=== PATIENT | male | born 1950 | race Caucasian/White ===

== ENCOUNTER 2017-09-21 08:15 | Outpatient (RCR) | payer OTHER, SELFPAY ==
--- NOTE | 2017-09-08 13:57 | PT.OTN ---
Addendum entered and electronically signed by Lorena Johnson, PT 09/08/17 14:24: Transition note: On September 08, 2017 our therapy services consisting of Speech, Occupational, and Physical Therapy transitioned from the [employer] electronic documentation system to a new [employer] electronic documentation system.?? All documentation prior to September 08 can be found under [employer] saved data. From September 08 forward all medical record documentation will be in [employer]. Original Note: Physical Therapy Treatment Note PT-OP-A Visit Information Start: 09/08/17 10:28 Freq: Status: Active Protocol: Activity Type Activity Date Activity User E-Sign Co-Sign Detail Recorded Client Recorded Date Recorded By Document 09/08/17 09:15 EA [id number] 09/08/17 12:49 EA 09/08/17 09:15 Out-Patient Physical Therapy Visit Information [Visit Information] -Visit Type Treatment Note -Visit Start Time 08:15 -Visit Stop Time 09:08 -Total Visit Minutes 53 PT-OP-C Subjective Start: 09/08/17 10:28 Freq: Status: Active Protocol: Activity Type Activity Date Activity User E-Sign Co-Sign Detail Recorded Client Recorded Date Recorded By Document 09/08/17 12:15 EA [id number] 09/08/17 12:44 EA 09/08/17 12:15 OP-PT Subjective [Patient Comments] -Patient Comments Patient reports pain decreased after last session and pain mostly happen after waking up in the morning and slowly decrease after few mobilization. Patient also reports that he is planning to row a boat today and hoping no problem; he is aware with recommended stretching pre- caution. -Patient Reported Progress Improving PT-OP-Q Treatments Start: 09/08/17 10:28 Freq: Status: Active Protocol: Activity Type Activity Date Activity User E-Sign Co-Sign Detail Recorded Client Recorded Date Recorded By Document 09/08/17 12:15 EA [id number] 09/08/17 12:44 EA 09/08/17 12:15 Cardio Equipment [Recumbent Elliptical ([employer])] -Duration (Minutes) 6 -Resistance 3 -Other UE's does work than BLE's Gym Equipment [Cable Column (Body Solid)] Seated cable row, Pull down bilateral -Resistance 30-50 lbs -Reps/Time 12-15 reps x 2 sets Therapeutic Exercises [Prone Exercises] T-Ball prone DB mid back row -Side bilateral -Equipment Used DB, TB -Reps/Minutes 12-15 reps x 2 sets [Other Exercises] Quadruped thorcic rotation w/ stretch -Side bilateral -Reps/Minutes 10 reps x 2 sets Standing Latissimus, Ql, and TL side flexors stretch -Side bilateral -Reps/Minutes x 15-30 SH x 2 reps Child pose to SB to L/R -Side bilateral -Reps/Minutes 15 SH x 5 reps x 2sets Manual Therapy Treatment [Manual Techniques] Supine: HR active stretch to right Lats -Body Position Supine -Reps/Duration 5 reps x 2 sets -Comments Sub max contraction only. STM: to right paralumbars, low parathoracis, QL -Body Position Prone -Reps/Duration 12 PT-OP-R Modalities Start: 09/08/17 10:28 Freq: Status: Active Protocol: Activity Type Activity Date Activity User E-Sign Co-Sign Detail Recorded Client Recorded Date Recorded By Document 09/08/17 12:15 EA [id number] 09/08/17 12:44 EA 09/08/17 12:15 Electric Stimulation [Electric Stimulation] Interferential Current (IFC) -Contraction Type Normal -Target/Sweep Target -High/Low High -Patient Position Prone -Combined With Heat/Cold Hot Pack Hot Pack/Cold Pack [Treatment] Hot Pack -Patient Position Prone -Treatment Duration (minutes) 15 -Patient Tolerance Good -Comments pillow under abdominal Ultrasound Therapy [Treatment] Right Back -Treatment Duration (minutes) 8 -Patient Position Prone -Coupling Medium Ultrasound Gel -Mode Setting Continuous -Intensity Setting (w/cm2) 1.2 -Patient Tolerance Good [Comment] -Treatment Comment Right Paralumbars, QL , and lower Parathoracis PT-OP-T Assessment and Plan Start: 09/08/17 10:28 Freq: Status: Active Protocol: Activity Type Activity Date Activity User E-Sign Co-Sign Detail Recorded Client Recorded Date Recorded By Document 09/08/17 12:15 EA [id number] 09/08/17 12:44 EA 09/08/17 12:15 Physical Therapy Assessment [Rehab Potential] -Rehabilitation Potential Good [Impairments] -Impairments Soft Tissue Mobility [Assessment Summary] -Assessment Patient exhibits improved TL spine ROM and exrcises tolerance. Patient have decreased stiffness to right paralumbars and thoracis. Patient is progressing well at this time. Physical Therapy Plan [Next Visit Focus/Plan] -Next Visit Plan Continue w/ current plan with addition of rowing machine for cardio exercises. Current Diagnoses Pleurodynia (09/08/17)
--- NOTE | 2017-09-15 13:28 | PT.OTN ---
Current Diagnoses Pleurodynia (09/15/17) Physical Therapy Treatment Note PT-OP-A Visit Information Start: 09/08/17 10:28 Freq: Status: Active Protocol: Activity Type Activity Date Activity User E-Sign Co-Sign Detail Recorded Client Recorded Date Recorded By Document 09/15/17 10:53 GAYLE [id number] 09/15/17 10:53 EA 09/15/17 10:53 Out-Patient Physical Therapy Visit Information [Visit Information] -Visit Type Treatment Note -Total Visit Minutes 58 -Visit Number 5 PT-OP-C Subjective Start: 09/08/17 10:28 Freq: Status: Active Protocol: Activity Type Activity Date Activity User E-Sign Co-Sign Detail Recorded Client Recorded Date Recorded By Document 09/15/17 09:00 GAYLE [id number] 09/15/17 10:52 EA 09/15/17 09:00 OP-PT Subjective [Patient Comments] -Patient Comments Patient reports able to row the boat for more than an hour and pain did not increased; states that he is feeling much better at this time. -Patient Reported Progress Improving PT-OP-Q Treatments Start: 09/08/17 10:28 Freq: Status: Active Protocol: Activity Type Activity Date Activity User E-Sign Co-Sign Detail Recorded Client Recorded Date Recorded By Document 09/15/17 09:00 EA [id number] 09/15/17 10:52 EA 09/15/17 09:00 Cardio Equipment [Rowing Machine] -Duration (Minutes) 6 -Resistance 3 Therapeutic Exercises [Prone Exercises] 2 -Prone Exercise Name Elysia pose -Side bilateral -Reps/Minutes x 15 SH x 3 1 -Prone Exercise Name Prone back extension -Reps/Minutes x10 x 3 sets T-Ball prone DB mid back row -Side bilateral -Equipment Used DB, TB -Reps/Minutes 12-15 reps x 2 sets [Other Exercises] Quadruped thorcic rotation w/ stretch -Side bilateral -Reps/Minutes 10 reps x 2 sets Standing Latissimus, Ql, and TL side flexors stretch -Side bilateral -Reps/Minutes x 15-30 SH x 2 reps Manual Therapy Treatment [Soft Tissue Mobilization] 1 -Body Location R paralumbars -Mobilization Type Myofascial Release Rolling -Intensity/Depth Moderate -Body Position Prone [Manual Techniques] Supine: HR active stretch to right Lats -Body Position Supine -Reps/Duration 5 reps x 2 sets -Comments Sub max contraction only. STM: to right paralumbars, low parathoracis, QL -Body Position Prone -Reps/Duration 12 PT-OP-R Modalities Start: 09/08/17 10:28 Freq: Status: Active Protocol: Activity Type Activity Date Activity User E-Sign Co-Sign Detail Recorded Client Recorded Date Recorded By Document 09/15/17 09:00 GAYLE [id number] 09/15/17 10:52 EA 09/15/17 09:00 Electric Stimulation [Electric Stimulation] Interferential Current (IFC) -Contraction Type Normal -Target/Sweep Target -High/Low High -Patient Position Prone -Combined With Heat/Cold Hot Pack Hot Pack/Cold Pack [Treatment] Hot Pack -Patient Position Prone -Treatment Duration (minutes) 15 -Patient Tolerance Good -Comments pillow under abdominal Ultrasound Therapy [Treatment] Right Back -Treatment Duration (minutes) 8 -Patient Position Prone -Coupling Medium Ultrasound Gel -Mode Setting Continuous -Intensity Setting (w/cm2) 1.2 -Patient Tolerance Good PT-OP-T Assessment and Plan Start: 09/08/17 10:28 Freq: Status: Active Protocol: Activity Type Activity Date Activity User E-Sign Co-Sign Detail Recorded Client Recorded Date Recorded By Document 09/15/17 09:00 GAYLE [id number] 09/15/17 10:52 EA 09/15/17 09:00 Physical Therapy Assessment [Goals] One -Halfway Goal (LTG) Patient will perform rowing and other therpeutic activity without pain. -LTG Duration 1 wk [Progress Towards Goals] -Progress Towards Goals Progressing Toward Goals -Progress Comments Patient tolerated 6 minutes row w/ no increased of back/rightt rib symtoms. [Assessment Summary] -Assessment Patient is progress well towards goals. Physical Therapy Plan [Next Visit Focus/Plan] -Next Visit Plan Cont. with current program and discharge next visit fi goals met.
--- NOTE | 2017-09-21 16:32 | PT.OTN ---
Current Diagnoses Pleurodynia (09/21/17) Physical Therapy Treatment Note PT-OP-A Visit Information Start: 09/08/17 10:28 Freq: Status: Active Protocol: Document 09/21/17 09:20 EA (Rec: 09/21/17 16:24 EA [id number]) Out-Patient Physical Therapy Visit Information Visit Information Visit Type Treatment Note Total Visit Minutes 40 Visit Number 6 PT-OP-C Subjective Start: 09/08/17 10:28 Freq: Status: Active Protocol: Document 09/21/17 09:20 EA (Rec: 09/21/17 16:24 EA [id number]) OP-PT Subjective Patient Comments Patient Comments Patient reports did hiking for 2 hours without increased of back sysmptoms; reports no pain at rest and 1/10 with activity; overall he feels that he improved a lot. Patient agreeable to discharge today as he feels he will improve with HEP after todays treatment. Patient Questionnaires Oswestry Low Back Index Oswestry Score 9 Oswestry Impairment 1 to 19% Impaired (Score 1-19) PT-OP-Q Treatments Start: 09/08/17 10:28 Freq: Status: Active Protocol: Document 09/21/17 09:20 EA (Rec: 09/21/17 16:24 EA [id number]) Manual Therapy Treatment Soft Tissue Mobilization 1 Body Location R paralumbars Mobilization Type Myofascial Release Rolling Intensity/Depth Moderate Body Position Prone Self-Care/Home Management Treatment Education Patient Education Body Mechanics Home Exercise Program Pain Management Posture PT-OP-R Modalities Start: 09/08/17 10:28 Freq: Status: Active Protocol: Document 09/21/17 09:20 EA (Rec: 09/21/17 16:24 EA [id number]) Electric Stimulation Electric Stimulation Interferential Current (IFC) Contraction Type Normal Target/Sweep Target High/Low High Patient Position Prone Combined With Heat/Cold Hot Pack Hot Pack/Cold Pack Treatment Hot Pack Patient Position Prone Treatment Duration (minutes) 15 Patient Tolerance Good Comments pillow under abdominal PT-OP-T Assessment and Plan Start: 09/08/17 10:28 Freq: Status: Active Protocol: Document 09/21/17 09:20 EA (Rec: 09/21/17 16:24 EA [id number]) Physical Therapy Assessment Rehab Potential Rehabilitation Potential Excellent Goals One LTG Duration Goals reached Progress Towards Goals Progress Towards Goals Goals Met Assessment Summary Assessment Patient is discharge today upon reaching functional and treatment goals. Patient educated with HEP and exhibits good carryover. Physical Therapy Plan Next Visit Focus/Plan Next Visit Plan Patient is discharge today.
--- NOTE | 2017-09-21 16:33 | PT.OPDS ---
Current Diagnoses Pleurodynia (09/21/17) Provider Visit Care Team Role Provider Type Karuna Berg MD Attending Provider Physician Family Provider Primary Care Provider Specialty: Family Practice Address: [address] [place] [address], [facility] Email: Discharge Summary PT-OP-C Subjective Start: 09/08/17 10:28 Freq: Status: Active Protocol: Document 09/21/17 09:20 EA (Rec: 09/21/17 16:24 EA [id number]) OP-PT Subjective Patient Comments Patient Comments Patient reports did hiking for 2 hours without increased of back sysmptoms; reports no pain at rest and 1/10 with activity; overall he feels that he improved a lot. Patient agreeable to discharge today as he feels he will improve with HEP after todays treatment. Patient Questionnaires Oswestry Low Back Index Oswestry Score 9 Oswestry Impairment 1 to 19% Impaired (Score 1-19) PT-OP-T Assessment and Plan Start: 09/08/17 10:28 Freq: Status: Active Protocol: Document 09/21/17 09:20 EA (Rec: 09/21/17 16:24 EA [id number]) Physical Therapy Assessment Rehab Potential Rehabilitation Potential Excellent Goals One LTG Duration Goals reached Progress Towards Goals Progress Towards Goals Goals Met Assessment Summary Assessment Patient is discharge today upon reaching functional and treatment goals. Patient educated with HEP and exhibits good carryover. Physical Therapy Plan Next Visit Focus/Plan Next Visit Plan Patient is discharge today.
== END 2017-10-22 09:20 ==
LOC: PHYS 08:15
PROVIDERS: Family Provider Family Medicine; PCP Family Medicine; Visit Provider Family Medicine
DX: R07.81 Pleurodynia (principal)
CPT/HCPCS: 97010; 97014; 97035; 97110; 97140; 97535; G0283

== ENCOUNTER → 2018-03-10 10:52 | Outpatient (CLI) | payer OTHER, SELFPAY ==
--- NOTE | 2018-03-10 | DI.RAD.S_ITS ---
PROCEDURE: XR LUMBAR SPINE 2-3V INDICATIONS: LOW BACK PAIN TECHNIQUE: 3 views of the lumbar spine were acquired. COMPARISON: [facility], , L-SPINE 2-3 VIEWS, 02/04/2013, 13:56. FINDINGS: Bones: 5 qve-ene-cimwwyc vertebrae are present. Mild dextrocurvature. Multilevel grade one retrolisthesis. Multilevel disc degeneration, moderate to severe at the L1-L2 level. Moderate L4-L5 and L5-S1 facet joint arthropathy. No vertebral body compression fractures. No suspicious bony lesions. Soft tissues: Overlying bowel gas pattern is normal. No suspicious soft tissue calcifications. IMPRESSION: Multilevel degenerative change. Dictated by: Wilmer Agee [facility] Interpreted: Shahab Fortune MD on 03/10/2018 at 14:16 Approved by: Shahab Fortune M.D. on 03/10/2018 at 15:42
== END ==
PROVIDERS: PCP Family Medicine; Visit Provider Family Medicine
DX: M54.5 Low back pain (principal); M51.36 Other intervertebral disc degeneration, lumbar region; M43.16 Spondylolisthesis, lumbar region; M47.816 Spondylosis without myelopathy or radiculopathy, lumbar region; M47.817 Spondylosis without myelopathy or radiculopathy, lumbosacral region
CPT/HCPCS: 72100

== ENCOUNTER 2018-08-24 06:54 | Day surgery (SDC) | payer OTHER, SELFPAY ==
[2018-08-24 07:16] VITALS: BP 157/71; PULSE 54; RESP 15; TEMP 36.3; O2SAT 97
[2018-08-24 07:25] VITALS: BP 98/58; PULSE 41; RESP 12; TEMP 36.1; O2SAT 100
[2018-08-24 07:30] VITALS: BP 118/66; PULSE 47; RESP 16; O2SAT 100
[2018-08-24] MEDS: PROPARACAINE 0.5% OPHTH SOL 2 DROPS EYE-OP (07:45)
[2018-08-24] MEDS: CATARACT EYE COMPOUND (10 DROPS/SYRINGE) 3 DROPS EYE-OP (07:50)
--- NOTE | 2018-08-24 08:09 | PM.PREOP ---
Pre-operative Note Interval Note History & Physical reviewed/Exam performed by Physician: No Changes to H&P: No
--- NOTE | 2018-08-24 08:09 | PM.OP.1 ---
Operative Date/Time/Diagnoses Pre-op diagnosis: Nuclear cataract right eye Procedure & Clinicians Procedure: Cataract Surgery Same procedure as scheduled: Yes Surgeon: Baljit Scott Anesthesia Type: MAC +/- and Sedation Operative Notes Procedure in detail: Patient brought to the operating suite. Tetracaine drops placed in the right eye. Patient was prepped and draped in sterile manner. Wire lid speculum was placed in the eye. Betadine drops were placed on the eye. This was irrigated. Lidocaine jelly was placed on the eye. A paracentesis port was created with a side-port blade. 0.1 mL 1% preservative free lidocaine was injected into the anterior chamber. The anterior chamber was deepened with viscoelastic. 2.6 mm keratome was used to create a temporal clear corneal incision. Cystotome and Utrata forceps were used to create continuous tear capsulorrhexis. Balanced salt solution was used to hydro dissect the nucleus. The phacoemulsification handpiece was inserted and the nucleus was removed using the stop and chop technique. A tear was noticed in the anterior capsule. This did not extend and no vitreous was present in the anterior chamber. The irrigation aspiration handpiece was inserted and the remaining cortex was removed. Anterior chamber was deepened with viscoelastic. The incision was enlarged with the keratome An Puckett [id number] intraocular lens with a power of 21.5 was injected into the sulcus with optic capture. Irrigation aspiration handpiece was inserted and the remaining viscoelastic was removed. Miost was injected to constrict the pupil above the lens. Incision was hydrated with balanced salt solution and found to be leak free with pressure with Weck-Shelby sponges. 0.1 mL Vigamox injected anterior chamber. 0.3 mL Kenalog 10 mg was injected subconjunctivally. Lid speculum was removed. The patient left the operating room in excellent condition. Complications: none Condition: stable Disposition: same day surgery
[2018-08-24] MEDS: PHENYLEPHRINE/LIDOCAINE VIAL (OR) 0.2 ML EYE-OP (08:28)
[2018-08-24] MEDS: TRIAMCINOLONE 50 MG/5 ML VIAL INJ (08:28)
[2018-08-24] MEDS: MOXIFLOXACIN OPHTH DROPS 3 ML BOTTLE 2 DROPS INJ (08:28)
[2018-08-24] MEDS: BALANCED SALT IRRIG SOLN NO.2 500 ML, EPINEPHrine 1 MG IRR (08:29)
[2018-08-24] MEDS: CHONDROIDTIN/SOD HYALURONATE 1.05 ML SYRINGE INTRAOCULA (08:29)
[2018-08-24] MEDS: LIDOCAINE JELLY 2% 5 ML 1 APPLIC TOP (08:29)
[2018-08-24] MEDS: TETRACAINE 0.5% OPHTH DROPS 4 ML 2 DROPS EYE-OP (08:29)
[2018-08-24] MEDS: CARBACHOL 1.5 ML VIAL INJ (08:41)
[2018-08-24 08:51] VITALS: BP 134/73; PULSE 54; RESP 15; TEMP 36.3; O2SAT 96
--- NOTE | 2018-08-24 09:01 | SUR.PREOP ---
Pt dressed when ready to go and left unit when ready and left in stable condition.
--- NOTE | 2018-08-24 09:03 | SUR.PHASEII ---
Phase 2 charting may have been done in Phase one section.
== END 2018-08-24 09:02 ==
LOC: OR 06:55
PROVIDERS: Family Provider Family Medicine; PCP Family Medicine; Visit Provider Ophthalmology
DX: H25.11 Age-related nuclear cataract, right eye (principal); J45.909 Unspecified asthma, uncomplicated
CPT/HCPCS: J0171; J2250; J3010; J3301

== ENCOUNTER 2018-09-07 07:00 | Day surgery (SDC) | payer OTHER, SELFPAY ==
[2018-09-07] MEDS: PROPARACAINE 0.5% OPHTH SOL 2 DROPS EYE-OP (07:10)
[2018-09-07 07:16] VITALS: BP 136/76; PULSE 66; RESP 16; TEMP 36.6; O2SAT 99; BMI 22.5
[2018-09-07] MEDS: CATARACT EYE COMPOUND (10 DROPS/SYRINGE) 3 DROPS EYE-OP (07:37)
--- NOTE | 2018-09-07 08:14 | PM.PREOP ---
Pre-operative Note Interval Note History & Physical reviewed/Exam performed by Physician: No Changes to H&P: No
--- NOTE | 2018-09-07 08:14 | PM.OP.1 ---
Operative Date/Time/Diagnoses Pre-op diagnosis: Nuclear Cataract Left eye Post-op diagnosis: same Procedure & Clinicians Surgeon: Baljit Scott Anesthesia Type: MAC +/- and Sedation Operative Notes Procedure in detail: Patient brought to the operating suite. Tetracaine drops placed in the left eye. Patient was prepped and draped in sterile manner. Wire lid speculum was placed in the eye. Betadine drops were placed on the eye. This was irrigated. Lidocaine jelly was placed on the eye. A paracentesis port was created with a side-port blade. 0.1 mL 1% preservative free lidocaine was injected into the anterior chamber. The anterior chamber was deepened with viscoelastic. 2.6 mm keratome was used to create a temporal clear corneal incision. Cystotome and Utrata forceps were used to create continuous tear capsulorrhexis. Balanced salt solution was used to hydro dissect the nucleus. The phacoemulsification handpiece was inserted and the nucleus was removed using the stop and chop technique. The irrigation aspiration handpiece was inserted and the remaining cortex was removed. Anterior chamber was deepened with viscoelastic. An Puckett [id number] intraocular lens with a power of 22.0 was injected into the capsular bag. Irrigation aspiration handpiece was inserted and the remaining viscoelastic was removed. Incision was hydrated with balanced salt solution and found to be leak free with pressure with Weck-Shelby sponges. 0.1 mL Vigamox injected anterior chamber. 0.3 mL Kenalog 10 mg was injected subconjunctivally. Lid speculum was removed. The patient left the operating room in excellent condition. Complications: none Condition: stable Disposition: same day surgery
[2018-09-07] MEDS: PHENYLEPHRINE/LIDOCAINE VIAL (OR) 0.2 ML EYE-OP (08:32)
[2018-09-07] MEDS: MOXIFLOXACIN OPHTH DROPS 3 ML BOTTLE 2 DROPS INJ (08:32)
[2018-09-07] MEDS: LIDOCAINE JELLY 2% 5 ML 1 APPLIC TOP (08:33)
[2018-09-07] MEDS: TETRACAINE 0.5% OPHTH DROPS 4 ML 2 DROPS EYE-OP (08:33)
[2018-09-07] MEDS: TRIAMCINOLONE 50 MG/5 ML VIAL INJ (08:33)
[2018-09-07] MEDS: CHONDROIDTIN/SOD HYALURONATE 1.05 ML SYRINGE INTRAOCULA (08:33)
[2018-09-07] MEDS: BALANCED SALT IRRIG SOLN NO.2 500 ML, EPINEPHrine 1 MG IRR (08:34)
[2018-09-07 08:45] VITALS: BP 136/94; PULSE 60; RESP 16; TEMP 36.5; O2SAT 95
== END 2018-09-07 08:55 | disposition home or self-care (01) ==
LOC: OR 07:01
PROVIDERS: Family Provider Family Medicine; PCP Family Medicine; Visit Provider Ophthalmology
DX: H25.12 Age-related nuclear cataract, left eye (principal); J45.909 Unspecified asthma, uncomplicated
CPT/HCPCS: J0171; J2250; J3010; J3301

== ENCOUNTER → 2019-11-29 10:58 | Outpatient (CLI) | payer OTHER, SELFPAY ==
--- NOTE | 2019-11-29 | DI.RAD.S_ITS ---
PROCEDURE: XR CHEST 2V INDICATIONS: ASTHMA TECHNIQUE: 2 views of the chest were acquired. COMPARISON: [facility] , CT, CHEST WITH CONTRAST, 09/14/2007, 10:42. FINDINGS: Surgical changes and devices: None. Lungs and pleura: Parenchymal scarring or atelectasis noted left lung base. No pleural effusions or pneumothorax. Mediastinum: Mediastinal contours are normal. Heart size is normal. Bones and chest wall: No suspicious bony abnormalities. Soft tissues appear unremarkable. IMPRESSION: No acute cardiopulmonary disease process. Dictated by: Eliza Delgado MD, PhD on 11/29/2019 at 17:36 Approved by: Eliza Delgado MD, PhD on 11/29/2019 at 17:40
== END ==
PROVIDERS: Family Provider Family Medicine; PCP Family Medicine; Referring Provider Family Medicine; Visit Provider Family Medicine
DX: J45.909 Unspecified asthma, uncomplicated (principal)
CPT/HCPCS: 71046

== ENCOUNTER → 2021-04-19 08:11 | Outpatient (CLI) | payer OTHER, SELFPAY ==
[2021-04-19 09:21] LABS: Add Manual Diff / Slide Review NO; Basophils Absolute Auto 100 /uL (0-100); Basophils Percent Auto 0.9 % (0-2); Eosinophils Absolute Auto 400 /uL (0-450); Eosinophils Percent Auto 6.7 % (2-4); Hematocrit 46.4 % (41-53); Hemoglobin 15.8 g/dL (13.5-17.5); Lymphocytes Absolute Auto 1500 /uL (1100-4500); Lymphocytes Percent Auto 24.6 % (25-40); Mean Corpuscular HGB Conc 34.2 % (30-36); Mean Corpuscular Hemoglobin 31.2 PG (26-34); Mean Corpuscular Volume 91.4 fL (80-100); Monocytes Absolute Auto 700 /uL (0-900); Monocytes Percent Auto 11.5 % (3-14); Neutrophils Absolute Auto 3400 /uL (1500-7000); Neutrophils Percent Auto 56.3 % (50-75); Platelet Count 222 X10^3/uL (150-400); Red Blood Cell Count 5.07 X10^6/uL (4.5-5.9)
[2021-04-19 09:41] LABS: Alanine Aminotransferase 36 IU/L (<50); Albumin 4.1 g/dL (3.5-5.0); Albumin Globulin Ratio 1.6 (1.0-2.8); Alkaline Phosphatase 100 U/L (38-126); Aspartate Aminotransferase 29 IU/L (17-59); BUN Creatinine Ratio 17.8 (6-22); Bilirubin Total 0.7 mg/dL (0.2-1.3); Blood Urea Nitrogen 16 mg/dL (9-20); Calcium 9.7 mg/dL (8.4-10.2); Carbon Dioxide 26 mmol/L (22-32); Chloride 106 mmol/L (98-107); Cholesterol 142 mg/dL (140-199); Estimated Glomerular Filt Rate > 60.0 mL/min (>60); Globulin 2.5 g/dL (1.7-4.1); Glucose 101 mg/dL (80-110); HDL Cholesterol 36 mg/dL (40-60); HEMOLYSIS < 15 (0-50); LDL Cholesterol Calculated 73 mg/dL (<100); Potassium 4.7 mmol/L (3.4-5.1); Sodium 140 mmol/L (137-145); Total Protein 6.6 g/dL (6.3-8.2); Triglycerides 165 mg/dL (35-150)
[2021-04-19 10:02] LABS: Prostate Specific Antigen 0.882 ng/mL (0.10-4.00)
== END ==
PROVIDERS: Family Provider Family Medicine; PCP Family Medicine; Referring Provider Family Medicine; Visit Provider Family Medicine
DX: E78.5 Hyperlipidemia, unspecified (principal)
CPT/HCPCS: 36415; 80053; 80061; 84153; 85025

== ENCOUNTER 2021-07-30 03:46 | Emergency (ER) | payer OTHER, SELFPAY ==
[2021-07-30] VITALS (12 sets, daily range): BP systolic 165–221; BP diastolic 77–104; PULSE 50–73; RESP 12–18; TEMP 36; O2SAT 90–100; BMI 23.1
--- NOTE | 2021-07-30 03:47 | ED_ITS ---
HPI - Chest Pain General Chief Complaint: Chest Pain Stated Complaint: BACK AND CHEST PAIN Time Seen by Provider: 07/30/21 03:47 History of Present Illness HPI narrative: 71-year-old male nonsmoker and occasional drinker presents with his in the chief complaint of bilateral lower abdominal pain, flank pain and chest pain that woke him from sleep about an hour ago. He states that he has been in his normal state of health and went to bed feeling fine. He woke up with these symptoms. He denies any headache or blurred vision. He has no trouble speech or swallowing. He does have some difficulty in breathing that he states feels different than his typical asthma exacerbation. He denies any recent travel or injury. He denies any overuse of any particular muscle groups. He has got no fever or chills. 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 He denies any obvious provocation, palliation. He denies any exertional component. Related Data Home Medications Medication Instructions Recorded Confirmed albuterol sulfate 90 mcg/actuation 1 puff INH PRN PRN #0 11/24/16 09/07/18 aerosol inhaler (Proventil HFA) atorvastatin 20 mg tablet (Lipitor) 20 mg PO HS #0 11/24/16 09/07/18 beclomethasone dipropionate 80 1 puff INH BID #0 11/24/16 09/07/18 mcg/actuation aerosol inhaler (Qvar) Previous Rx's Medication Instructions Recorded hydrocodone 5 mg-acetaminophen 325 1 tab PO Q4-6H PRN #10 tab 07/30/21 mg tablet ondansetron 4 mg disintegrating 4 mg PO TID-QID PRN #10 tab 07/30/21 tablet Allergies Allergy/AdvReac Type Severity Reaction Status Date / Time epinephrine [EPINEPHRINE] Allergy Unknown shock Verified 08/24/18 07:57 Review of Systems Review of Systems Narrative: GENERAL: Denies chills, fatigue, malaise, fever, sweats. HEENT: Denies sinus pain, ear pain, sore throat, difficulty swallowing, dizziness. RESPIRATORY: See HPI CARDIOVASCULAR: See HPI GASTROINTESTINAL: See HPI : Denies dysuria, frequency, incontinence, hematuria, urinary retention. MUSCULOSKELETAL: denies weakness, joint pain, or bony pain SKIN: Denies rash, skin lesions, or other NEUROLOGIC: Denies weakness, headache, numbness, change in speech, confusion, seizures, incoordination. PSYCHIATRIC: No concerning psychosocial issues. 12 point review of systems is negative except for those stated above Patient History Social History household members: spouse Smoking Status: Never smoker Exam Narrative Exam Narrative: GENERAL: [71 year old patient appears stated age. Well-developed patient, in mild distress. HEAD: Atraumatic. Normocephalic. EYES: Pupils equal round and reactive. Extraocular motions intact. No scleral icterus. No injection or drainage. ENT: Nose without bleeding, purulent drainage. Throat without erythema, tonsillar hypertrophy or exudate. Airway patent. NECK: Trachea midline. Non tender CARDIOVASCULAR: Regular rate and rhythm without murmurs, gallops, or rubs. RESPIRATORY: Clear to auscultation. Breath sounds equal bilaterally. No wheezes, rales, or rhonchi. GASTROINTESTINAL: Abdomen soft, mild generalized abdominal tenderness, nondistended. No pulsatile mass, bowel sounds present EXTREMITIES: No edema or joint tenderness. BACK: Nontender without deformity or crepitance. No flank tenderness. NEURO: AOx3. SKIN: No rash or erythema of visible areas Initial Vital Signs Initial Vital Signs: Vital Signs Temperature 96.8 F L 07/30/21 03:53 Pulse Rate 55 L 07/30/21 03:53 Respiratory Rate 18 07/30/21 03:53 Blood Pressure 221/104 H 07/30/21 03:53 Pulse Oximetry 98 07/30/21 03:53 Course Orders Ordered: Discontinued Medications Aspirin (Aspirin 81 Mg Chew Tab) 324 mg PO NOW ONE Stop: 07/30/21 03:49 Last Admin: 07/30/21 04:05 Dose: 324 mg Documented by: TSERING Sodium Chloride (Normal Saline 0.9%) 1,000 mls @ 150 mls/hr IV CONT JOSHUA Last Infusion: 07/30/21 15:02 Dose: 0 mls/hr Documented by: Admin: 07/30/21 04:05 Dose: 150 mls/hr Documented by: TSERING Consultations Consultation #1: Discussed with on-call surgery given mixed picture regarding findings on CT and ultrasound. Given lack of lab abnormalities, no significant findings on ultrasound, tolerance of pain and orals patient is appropriate for discharge and follow-up Vital Signs Vital signs: Vital Signs - 8 hr 07/30/21 03:53 07/30/21 04:01 Temperature 96.8 F L Pulse Rate 55 L 51 L Respiratory Rate 18 15 Blood Pressure 221/104 H 201/94 H Pulse Oximetry 98 100 MDM - Chest Pain Lab Data Result diagrams: 07/30/21 04:02 07/30/21 04:02 Labs: Lab Results 07/30/21 07/30/21 07/30/21 Range/Units 04:02 04:02 04:02 WBC 7.1 (4.5-11.0) X10^3/uL RBC 5.12 (4.5-5.9) X10^6/uL Hgb 15.8 (13.5-17.5) g/dL Hct 46.1 (41-53) % MCV 90.0 (80-100) fL MCH 30.8 (26-34) PG MCHC 34.2 (30-36) % RDW 13.1 (11.6-14.8) % Plt Count 211 (150-400) X10^3/uL Neut % (Auto) 52.8 (50-75) % Lymph % (Auto) 24.8 L (25-40) % [place] % (Auto) 11.4 (3-14) % Eos % (Auto) 9.8 H (2-4) % Baso % (Auto) 1.2 (0-2) % Neut # (Auto) 3700 (2585-3605) /uL Lymph # (Auto) 1800 (5099-3519) /uL [place] # (Auto) 800 (0-900) /uL Eos # (Auto) 700 H (0-450) /uL Baso # (Auto) 100 (0-100) /uL D-Dimer 202 (<230) ng/mL Sodium 137 (137-145) mmol/L Potassium 3.9 (3.4-5.1) mmol/L Chloride 105 (98-107) mmol/L Carbon Dioxide 28 (22-32) mmol/L BUN 19 (9-20) mg/dL Creatinine 0.89 (0.66-1.25) mg/dL Estimated GFR > 60.0 (>60) mL/min BUN/Creatinine Ratio 21.3 (6-22) Glucose 133 H (80-110) mg/dL Calcium 9.8 (8.4-10.2) mg/dL Total Bilirubin 0.6 (0.2-1.3) mg/dL AST 38 (17-59) IU/L ALT 40 (<50) IU/L Alkaline Phosphatase 86 (38-126) U/L Total Creatine Kinase 89 (55-170) U/L CK-MB (CK-2) TNP CK-MB (CK-2) Rel Index TNP Troponin I < 0.012 (0.01-0.034) ng/mL Total Protein 7.3 (6.3-8.2) g/dL Albumin 4.4 (3.5-5.0) g/dL Globulin 2.9 (1.7-4.1) g/dL Albumin/Globulin Ratio 1.5 (1.0-2.8) Lipase 122 (23-300) U/L Blood Type Antibody Screen 07/30/21 Range/Units 05:14 WBC (4.5-11.0) X10^3/uL RBC (4.5-5.9) X10^6/uL Hgb (13.5-17.5) g/dL Hct (41-53) % MCV (80-100) fL MCH (26-34) PG MCHC (30-36) % RDW (11.6-14.8) % Plt Count (150-400) X10^3/uL Neut % (Auto) (50-75) % Lymph % (Auto) (25-40) % [place] % (Auto) (3-14) % Eos % (Auto) (2-4) % Baso % (Auto) (0-2) % Neut # (Auto) (1188-1954) /uL Lymph # (Auto) (6378-5400) /uL [place] # (Auto) (0-900) /uL Eos # (Auto) (0-450) /uL Baso # (Auto) (0-100) /uL D-Dimer (<230) ng/mL Sodium (137-145) mmol/L Potassium (3.4-5.1) mmol/L Chloride (98-107) mmol/L Carbon Dioxide (22-32) mmol/L BUN (9-20) mg/dL Creatinine (0.66-1.25) mg/dL Estimated GFR (>60) mL/min BUN/Creatinine Ratio (6-22) Glucose (80-110) mg/dL Calcium (8.4-10.2) mg/dL Total Bilirubin (0.2-1.3) mg/dL AST (17-59) IU/L ALT (<50) IU/L Alkaline Phosphatase (38-126) U/L Total Creatine Kinase (55-170) U/L CK-MB (CK-2) CK-MB (CK-2) Rel Index Troponin I (0.01-0.034) ng/mL Total Protein (6.3-8.2) g/dL Albumin (3.5-5.0) g/dL Globulin (1.7-4.1) g/dL Albumin/Globulin Ratio (1.0-2.8) Lipase (23-300) U/L Blood Type O Positive Antibody Screen Negative Imaging Data CT scan - chest: Radiologist's Impression: Chart Viewer Diagnostics Subcategory All Activity ??:?? All Time ??:?? All Subcategories Filter Laboratory Imaging Microbiology Pathology Blood Bank Tests Cardiovascular Other Specialty DATE TYPE STATUS REF RANGE/AUTHOR Hx Today 05:51 Abdomen Ultrasound Signed Eliza Delgado Today 04:42 Chest/Abdomen/Pelvis CTA Signed Kesha Denson Today 03:48 Chest X-Ray Signed Eliza Delgado 11/29/19 00:00 Chest X-Ray Signed Eliza Delgado 03/10/18 00:00 Lumbar Spine X-Ray Signed Shahab Fortune Gerald R ED 71, M?1950 MRN#? [id number] DEP ER,?Main ED??? 187.96cm 81.647kg BMI: 23.1kg/m? Chest Pain Acc#? [id number] Resus Status Not Ordered No Hx Avail Special Indicators No Data to Display Home Meds Not Confirmed Prescription Monitoring Program Total 30 MME/Day Pending Discharge MEDICATIONS (INSTRUCTIONS) LAST TAKEN Active ??albuterol sulfate [Proventil HFA] ??1 puffINHPRNPRN#0 ??atorvastatin [Lipitor] ??20 mgPOHS#0 hydrocodone-acetaminophen 1 tabPOQ4-6HPRN#10 tab 30 MME/Day ondansetron 4 mgPOTID-QIDPRN#10 tab ??Qvar ??1 puffINHBID#0 *Product no longer available Allergies epinephrine (EPINEPHRINE) shock Problems ? ONSET Biliary colic Vital Signs Today 07:00 BP 202/84?H Pulse 58?L Resp 13? O2 Sat 98? Diagnostics Reports Toro Floyd??71??M??1950 ? Allergy/Adv: epinephrine Close Abdomen Ultrasound (Signed) Eliza Delgado - 07/30/21 Chest/Abdomen/Pelvis CTA (Signed) Kesha Denson - 07/30/21 Chest X-Ray (Signed) Eliza Delgado - 07/30/21 Chest X-Ray (Signed) Eliza Delgado - 11/29/19 Lumbar Spine X-Ray (Signed) Shahab Fortune - 03/10/18 Launch?[place] [address] CT Scan Report Signed Patient: Toro Floyd MR#: [id number] : 1950 Acct:[id number] Age/Sex: 71 / M Date of Service: 07/30/21 Loc: ED Accession Number: [id number] ?? Procedure: CT angio chest abdomen pelvis Ordering Provider: Williams Mauricio D.O. PROCEDURE:? CT ANGIO CHEST ABDOMEN PELVIS ? INDICATIONS:? sudden chest back, abdomen pain ? TECHNIQUE:? Precontrast 5 mm thick sections acquired from the lung apices to the iliac crests.? After the administration of intravenous contrast, 2.5 mm thick sections again acquired from the lung apices to the iliac crests.? Maximum intensity projection (MIP) oblique sagittal and coronal reformats were then acquired.? For radiation dose reduction, the following was used:? automated exposure control.? ? COMPARISON:? None. ? FINDINGS:? Image quality:? Excellent.? ? AORTA:? Mild diffuse calcific plaque causes mild diffuse stenosis within the thoracoabdominal aorta. ? CHEST:? Lungs and pleura:? No acute airspace opacities mild diffuse basilar predominant interstitial pulmonary opacity..? No pleural effusions or pneumothorax.? Central and peripheral airways are patent and normal in caliber.? ? Mediastinum:? Heart size is normal.? Mild calcification of the coronary va sculature.? No pericardial effusion.? No mediastinal or hilar adenopathy by size criteria.? Central pulmonary arteries are normal in size.? Esophagus is normal in caliber.? Large hiatal hernia.? ? Bones and chest wall:? No axillary adenopathy by size criteria.? Thyroid gland is within normal limits .? No suspicious bony lesions.? No vertebral body compression fractures.? ? ? ABDOMEN:? Vasculature:? Celiac trunk and mesenteric arteries are patent.? Renal arteries are also patent.? ? Solid organs:? Liver is normal in size and enhancement.? Gallbladder demonstrates a few small layering high density foci.? No evidence of gallbladder wall thickening.? Mild pericholecystic fat stranding.? Biliary system is non dilated.? Pancreas enhances normally.? Spleen is normal in size and enhancement.? No adrenal nodules.? Both kidneys are normal in size and enhancement, without hydronephrosis.? There are 2 nonobstructing calculi within the right interpolar kidney measuring 3 mm.? Bilateral renal cysts, largest of which is an exophytic cyst protruding inferiorly from the inferior pole right kidney measuring 70 mm diameter. ? Peritoneum and bowel:? No free fluid or air.? Bowel loops are normal in caliber and wall thickness.? Normal appendix. ? Nodes and vessels:? No retroperitoneal or mesenteric adenopathy by size criteria.? Inferior vena cava is normal in morphology.? ? Miscellaneous:? No ventral hernias.? ? ? PELVIS:? Genitourinary:? There is a left sided urinary bladder diverticulum measuring 14 mm diameter.? Bladder wall thickness is otherwise normal.? ? Miscellaneous:? No inguinal hernias or adenopathy.? No ventral hernias.? ? Bones:? No suspicious bony lesions.? No vertebral body compression fractures.? ? ? IMPRESSION:? 1. No acute process involving the thoracoabdominal aorta. 2. Cholelithiasis.? Mild pericholecystic fat stranding.? Findings may indicate mild/early cholecystitis.? This could be further assessed with ultrasound, if clinically indicated.? ? 3. Normal appendix. 4. Hiatal hernia. 5. Mild interstitial lung disease. 6. Urinary bladder diverticulum. 7. Concordant with preliminary interpretation. ? Dictated by: Kesha Denson M.D. on 07/30/2021 at 8:28 ? ? Approved by: Kesha Denson M.D. on 07/30/2021 at 8:48 ? US - abdomen: Radiologist's Impression: Chart Viewer Diagnostics Subcategory All Activity ??:?? All Time ??:?? All Subcategories Filter Laboratory Imaging Microbiology Pathology Blood Bank Tests Cardiovascular Other Specialty DATE TYPE STATUS REF RANGE/AUTHOR Hx Today 05:51 Abdomen Ultrasound Signed Eliza Delgado Today 04:42 Chest/Abdomen/Pelvis CTA Signed Kesha Denson Today 03:48 Chest X-Ray Signed Eliza Delgado 11/29/19 00:00 Chest X-Ray Signed Eliza Delgado 03/10/18 00:00 Lumbar Spine X-Ray Signed Shahab Fortune Gerald R ED 71, M?1950 MRN#? [id number] DEP ER,?Main ED??? 187.96cm 81.647kg BMI: 23.1kg/m? Chest Pain Acc#? [id number] Resus Status Not Ordered No Hx Avail Special Indicators No Data to Display Home Meds Not Confirmed Prescription Monitoring Program Total 30 MME/Day Pending Discharge MEDICATIONS (INSTRUCTIONS) LAST TAKEN Active ??albuterol sulfate [Proventil HFA] ??1 puffINHPRNPRN#0 ??atorvastatin [Lipitor] ??20 mgPOHS#0 hydrocodone-acetaminophen 1 tabPOQ4-6HPRN#10 tab 30 MME/Day ondansetron 4 mgPOTID-QIDPRN#10 tab ??Qvar ??1 puffINHBID#0 *Product no longer available Allergies epinephrine (EPINEPHRINE) shock Problems ? ONSET Biliary colic Vital Signs Today 07:00 BP 202/84?H Pulse 58?L Resp 13? O2 Sat 98? Diagnostics Reports Toro Floyd??71??M??1950 ? Allergy/Adv: epinephrine Close Abdomen Ultrasound (Signed) Eliza Delgado - 07/30/21 Chest/Abdomen/Pelvis CTA (Signed) Kesha Denson - 07/30/21 Chest X-Ray (Signed) Eliza Delgado - 07/30/21 Chest X-Ray (Signed) Eliza Delgado - 11/29/19 Lumbar Spine X-Ray (Signed) Shahab Fortune - 03/10/18 Launch?[address] [address] Ultrasound Report Signed Patient: Toro Floyd MR#: [id number] : 1950 Acct:[id number] Age/Sex: 71 / M Date of Service: 07/30/21 Loc: ED Accession Number: [id number] ?? Procedure: US abdomen limited Ordering Provider: Williams Mauricio D.O. PROCEDURE: US ABDOMEN LIMITED ? INDICATIONS:? ABNORMAL GALLBLADDER ON CT ? TECHNIQUE:? Real-time focused scanning was performed of the abdomen, with image documentati on.? ? COMPARISON:? None. ? FINDINGS:? ? Liver is normal in size.? Liver is diffusely echogenic. ? Two gallstones are identified.? Gallstones are fixed in the gallbladder neck.? No gallbladder wall thickening with gallbladder wall measuring 1.1 millimeters.? No pericholecystic fluid.? No sonographic Richardson sign. ? Biliary tree is nondilated.? Common bile duct measures 1.5 millimeters. ? IMPRESSION:? ? Cholelithiasis without sonographic evidence of cholecystitis.? If there is continued clinical concern for cholecystitis, a nuclear medicine HIDA scan should be considered for further evaluation. ? Echogenic liver. Finding typically represents fatty infiltration; however, finding is nonspecific and correlation with clinical and laboratory findings is recommended to exclude other etiologies including hepatic cirrhosis. ? ? ? Dictated by: Eliza Delgado MD, PhD on 07/30/2021 at 8:27 ? ? Approved by: Eliza Delgado MD, PhD on 07/30/2021 at 8:29 ? ECG Data Interpretation: EKG is normal sinus rhythm rate [57 ] and free of any signs of ischemia or ectopy. No ST segmental elevation or depression. No T wave inversions MDM Narrative Medical decision making narrative: Patient with relatively sudden onset back, upper abdomen and possible chest pain with improvement over the course of the visit. Imaging would suggest possible early gallbladder. No indications of surgical emergency. Labs are reassuring, pain well controlled and patient tolerating orals. Return precautions discussed and questions answered to his apparent satisfaction Discharge Plan Departure Patient Disposition: Home Clinical Impression: Biliary colic Instructions: Acute Abdominal Pain Activity Restrictions/Additional Instructions: *You have been diagnosed with [Right upper quadrant pain, likely due to gallbladder disease. As we discussed there is no new occasion for an emergent surgical intervention at this time ] *What to do: *Please continue to take your regular medications as directed. [x ] New medication prescriptions sent to your pharmacy: [[facility] ] [ ] New medication written as a paper prescription [ ] No new medications given *Please follow up with your primary care provider in 2-3 days, call for an appointment. Let them know you were seen in the Emergency Department and that we ask that you be seen in follow up. We will electronically transmit a record of today's note if your PCP is in our system *Please consider a clear liquid diet for the next 24-48 hours and then avoid fatty foods as they may trigger your gallbladder disease *If you do not have a primary care provider please contact the [facility] Resource line at [phone]. They will ask some questions about your medical history and help get you set up with a doctor in the community. *Return to Emergency Department if you should have any new, worsening or concerning symptoms, such as [fever greater than 101 F, shaking chills, worsening pain, persistent vomiting or other bothersome symptoms] Prescriptions: New hydrocodone-acetaminophen 5-325 mg tablet 1 tab PO Q4-6H PRN (Reason: pain) Qty: 10 0RF ondansetron 4 mg tablet,disintegrating 4 mg PO TID-QID PRN (Reason: nausea and vomiting) Qty: 10 0RF No Action atorvastatin [Lipitor] 20 MG tablet 20 mg PO HS Qty: 0 0RF Qvar 80 MCG/PUFF aerosol 1 puff INH BID Qty: 0 0RF albuterol sulfate [Proventil HFA] 90 MCG/PUFF HFA aerosol inhaler 1 puff INH PRN PRN (Reason: Cough) Qty: 0 0RF Referrals: Aleena Pedroza MD [Physician] - Karuna Berg MD [Primary Care Provider] -
--- NOTE | 2021-07-30 03:48 | DI.RAD.S_ITS ---
PROCEDURE: XR CHEST 1V INDICATIONS: Shortness of breath, Chest pain, Back Pain TECHNIQUE: One view of the chest was acquired. COMPARISON: None. FINDINGS: Surgical changes and devices: None. Lungs and pleura: Lungs are clear. No pleural effusions or pneumothorax. Mediastinum: Mediastinal contours appear normal. Heart size is normal. Bones and chest wall: Chronic right 3rd rib fracture. No suspicious bony lesions. Overlying soft tissues appear unremarkable. IMPRESSION: No acute cardiopulmonary disease process. Dictated by: Eliza Delgado MD, PhD on 07/30/2021 at 8:23 Approved by: Eliza Delgado MD, PhD on 07/30/2021 at 8:24
[2021-07-30] MEDS: SODIUM CHLORIDE 0.9% 1,000 ML 150 ML IV (04:05)
[2021-07-30] MEDS: ASPIRIN 81 MG CHEW TAB 324 MG PO (04:05)
[2021-07-30 04:30] LABS: Add Manual Diff / Slide Review NO; Basophils Absolute Auto 100 /uL (0-100); Basophils Percent Auto 1.2 % (0-2); Eosinophils Absolute Auto 700 /uL (0-450); Eosinophils Percent Auto 9.8 % (2-4); Hematocrit 46.1 % (41-53); Hemoglobin 15.8 g/dL (13.5-17.5); Lymphocytes Absolute Auto 1800 /uL (1100-4500); Lymphocytes Percent Auto 24.8 % (25-40); Mean Corpuscular HGB Conc 34.2 % (30-36); Mean Corpuscular Hemoglobin 30.8 PG (26-34); Monocytes Absolute Auto 800 /uL (0-900); Monocytes Percent Auto 11.4 % (3-14); Neutrophils Absolute Auto 3700 /uL (1500-7000); Neutrophils Percent Auto 52.8 % (50-75); Platelet Count 211 X10^3/uL (150-400); Red Blood Cell Count 5.12 X10^6/uL (4.5-5.9); Red Cell Distribution Width 13.1 % (11.6-14.8); White Blood Cell Count 7.1 X10^3/uL (4.5-11.0)
[2021-07-30 04:42] LABS: D Dimer 202 ng/mL (<230)
--- NOTE | 2021-07-30 04:42 | DI.CT.S_ITS ---
PROCEDURE: CT ANGIO CHEST ABDOMEN PELVIS INDICATIONS: sudden chest back, abdomen pain TECHNIQUE: Precontrast 5 mm thick sections acquired from the lung apices to the iliac crests. After the administration of intravenous contrast, 2.5 mm thick sections again acquired from the lung apices to the iliac crests. Maximum intensity projection (MIP) oblique sagittal and coronal reformats were then acquired. For radiation dose reduction, the following was used: automated exposure control. COMPARISON: None. FINDINGS: Image quality: Excellent. AORTA: Mild diffuse calcific plaque causes mild diffuse stenosis within the thoracoabdominal aorta. CHEST: Lungs and pleura: No acute airspace opacities mild diffuse basilar predominant interstitial pulmonary opacity.. No pleural effusions or pneumothorax. Central and peripheral airways are patent and normal in caliber. Mediastinum: Heart size is normal. Mild calcification of the coronary vasculature. No pericardial effusion. No mediastinal or hilar adenopathy by size criteria. Central pulmonary arteries are normal in size. Esophagus is normal in caliber. Large hiatal hernia. Bones and chest wall: No axillary adenopathy by size criteria. Thyroid gland is within normal limits . No suspicious bony lesions. No vertebral body compression fractures. ABDOMEN: Vasculature: Celiac trunk and mesenteric arteries are patent. Renal arteries are also patent. Solid organs: Liver is normal in size and enhancement. Gallbladder demonstrates a few small layering high density foci. No evidence of gallbladder wall thickening. Mild pericholecystic fat stranding. Biliary system is non dilated. Pancreas enhances normally. Spleen is normal in size and enhancement. No adrenal nodules. Both kidneys are normal in size and enhancement, without hydronephrosis. There are 2 nonobstructing calculi within the right interpolar kidney measuring 3 mm. Bilateral renal cysts, largest of which is an exophytic cyst protruding inferiorly from the inferior pole right kidney measuring 70 mm diameter. Peritoneum and bowel: No free fluid or air. Bowel loops are normal in caliber and wall thickness. Normal appendix. Nodes and vessels: No retroperitoneal or mesenteric adenopathy by size criteria. Inferior vena cava is normal in morphology. Miscellaneous: No ventral hernias. PELVIS: Genitourinary: There is a left sided urinary bladder diverticulum measuring 14 mm diameter. Bladder wall thickness is otherwise normal. Miscellaneous: No inguinal hernias or adenopathy. No ventral hernias. Bones: No suspicious bony lesions. No vertebral body compression fractures. IMPRESSION: 1. No acute process involving the thoracoabdominal aorta. 2. Cholelithiasis. Mild pericholecystic fat stranding. Findings may indicate mild/early cholecystitis. This could be further assessed with ultrasound, if clinically indicated. 3. Normal appendix. 4. Hiatal hernia. 5. Mild interstitial lung disease. 6. Urinary bladder diverticulum. 7. Concordant with preliminary interpretation. Dictated by: Kesha Denson M.D. on 07/30/2021 at 8:28 Approved by: Kesha Denson M.D. on 07/30/2021 at 8:48
[2021-07-30 04:45] LABS: Alanine Aminotransferase 40 IU/L (<50); Albumin 4.4 g/dL (3.5-5.0); Albumin Globulin Ratio 1.5 (1.0-2.8); Alkaline Phosphatase 86 U/L (38-126); Aspartate Aminotransferase 38 IU/L (17-59); BUN Creatinine Ratio 21.3 (6-22); Bilirubin Total 0.6 mg/dL (0.2-1.3); Blood Urea Nitrogen 19 mg/dL (9-20); Calcium 9.8 mg/dL (8.4-10.2); Carbon Dioxide 28 mmol/L (22-32); Chloride 105 mmol/L (98-107); Creatine Kinase 89 U/L (55-170); Estimated Glomerular Filt Rate > 60.0 mL/min (>60); Globulin 2.9 g/dL (1.7-4.1); Glucose 133 mg/dL (80-110); HEMOLYSIS 17 (0-50); Lipase 122 U/L (23-300); Potassium 3.9 mmol/L (3.4-5.1); Sodium 137 mmol/L (137-145); Total Protein 7.3 g/dL (6.3-8.2)
[2021-07-30 04:56] LABS: Troponin I < 0.012 ng/mL (0.01-0.034)
--- NOTE | 2021-07-30 05:51 | DI.US.S_ITS ---
PROCEDURE: US ABDOMEN LIMITED INDICATIONS: ABNORMAL GALLBLADDER ON CT TECHNIQUE: Real-time focused scanning was performed of the abdomen, with image documentation. COMPARISON: None. FINDINGS: Liver is normal in size. Liver is diffusely echogenic. Two gallstones are identified. Gallstones are fixed in the gallbladder neck. No gallbladder wall thickening with gallbladder wall measuring 1.1 millimeters. No pericholecystic fluid. No sonographic Richardson sign. Biliary tree is nondilated. Common bile duct measures 1.5 millimeters. IMPRESSION: Cholelithiasis without sonographic evidence of cholecystitis. If there is continued clinical concern for cholecystitis, a nuclear medicine HIDA scan should be considered for further evaluation. Echogenic liver. Finding typically represents fatty infiltration; however, finding is nonspecific and correlation with clinical and laboratory findings is recommended to exclude other etiologies including hepatic cirrhosis. Dictated by: Eliza Delgado MD, PhD on 07/30/2021 at 8:27 Approved by: Eliza Delgado MD, PhD on 07/30/2021 at 8:29
== END 2021-07-30 07:50 | disposition home or self-care (01) ==
PROVIDERS: Emergency Provider Emergency Medicine; Family Provider Family Medicine; PCP Family Medicine
DX: K80.50 Calculus of bile duct without cholangitis or cholecystitis without obstruction (principal)
CPT/HCPCS: 36415; 71045; 71275; 74174; 76705; 80053; 82550; 83690; 84484; 85025; 85379; 86850; 86900; 86901; 93005; 96360; 96361; 99284; Q9967

== ENCOUNTER → 2021-08-05 09:28 | Outpatient (CLI) | payer OTHER, SELFPAY ==
[2021-08-05 13:10] LABS: COVID19 -Nasal RAPID Negative (Negative)
== END ==
PROVIDERS: Family Provider Family Medicine; PCP Family Medicine; Visit Provider Surgery
DX: Z01.812 Encounter for preprocedural laboratory examination (principal); Z20.822 Contact with and (suspected) exposure to COVID-19
CPT/HCPCS: 87635; C9803

== ENCOUNTER 2021-08-06 13:38 | Day surgery (SDC) | payer OTHER, SELFPAY ==
[2021-08-05 09:02] VITALS: BMI 23.1
--- NOTE | 2021-08-06 | PATH_ITS ---
[facility] Accession Number: [id number] . 01 Material submitted: . gallbladder - GALLBLADDER . 02 Diagnosis: Gallbladder, Cholecystectomy: Acute and chronic cholecystitis and cholelithiasis. Small attached, capusular portion of liver with no significant histomorphologic abnormality. MRV 08/09/2021 1704 Local . 02 Electronically signed: . Catherine Pepper MD, Pathologist NPI- [id number] . 01 Gross description: . Received in formalin, labeled with the patient's name and designed 1. Gallbladder, is a 7.0 x 3.0 x 2.5 cm focally disrupted and collapsed gallbladder. The cystic duct margin is inked black. The serosa is trujillo-diaz and focally disrupted. There is an attached 1.6 x 1.4 cm portion of roughened cauterized tissue in the hepatic bed consistent with possible residual liver tissue (margin inked green). The wall is 0.2 to 0.3 cm thick. The mucosa is pale green, velvety and bile stained with no mucosal lesions identified. The lumen contains a 0.9 x 0.4 x 0.4 cm aggregate of multiple fragmented black choleliths. No additional lesions are identified. Boring Inspector sections include inked cystic duct margin en face and possible liver tissue are submitted in A1. ([id number]) /MRV 08/08/2021 1419 Local . 02 Pathologist provided ICD-10: K81.1, K80.20 . 02 CPT . 364267 Specimen Comment: A courtesy copy of this report has been sent to [phone] Performed at: 01 [facility] [address] [place] [address], [place], [place] [id number] MD Fletcher King MD Phone: [phone] Performed at: 02 [facility] [address] [place] [id number] MD Sofia Alvarado MD Phone: [phone]
[2021-08-06 14:24] VITALS: BP 161/82; PULSE 80; RESP 20; TEMP 36.3; O2SAT 98; BMI 23.1
[2021-08-06] MEDS: LACTATED RINGERS 1,000 ML 42 ML IV (14:39)
[2021-08-06] MEDS: INDOCYANINE GREEN 25 MG VIAL IJ ×2 (14:40→14:41)
--- NOTE | 2021-08-06 14:50 | PM.PREOP ---
Pre-operative Note COVID-19 COVID-19 status: Negative Result date/Date tested (Pos, Neg/Pending): 08/05/21 Interval Note History & Physical reviewed/Exam performed by Physician: Yes Changes to H&P: No ASA Class (for procedural sedation): II
[2021-08-06] MEDS: CEFAZOLIN 2 GM/20 ML SYRINGE IV (15:26)
--- NOTE | 2021-08-06 15:37 | SUR.OPER ---
Supine on padded OR bed, head on pillow, safety belt at thigh, left arm padded and tucked at side. Right arm secured on padded arm board <90 degrees abduction. Legs uncrossed. Padded footboard in place, gel under heels. Tape over blanket to secure lower legs.
[2021-08-06] MEDS: LIDOCAINE 1% 20 ML INJ (15:57)
[2021-08-06] MEDS: BUPIVACAINE 0.5% (PF) VIAL 30 ML INJ (15:59)
--- NOTE | 2021-08-06 16:43 | PM.OP.1 ---
Operative Date/Time/Diagnoses Date of procedure: 08/06/21 Time of procedure: 16:43 Pre-op diagnosis: Biliary colic Post-op diagnosis: same Procedure & Clinicians Procedure: Laparoscopic cholecystectomy Same procedure as scheduled: Yes Surgeon: Esau Deleon Anesthesia Type: General Operative Notes Estimated Blood Loss (mL): 20 Procedure in detail: The patient was given preoperative antibiotic. The patient was brought to the operating room, placed on the table in the supine position. General endotracheal anesthesia was induced. The abdomen was prepped and draped. A time-out was performed. We made a 1 cm infraumbilical incision. We dissected down to the base of the umbilical stalk using cautery. We grasped the umbilical stalk with a Harry clamp to elevate the abdominal wall. We scored the fascia in the midline with cautery 1 cm. We pierced the peritoneum with a Peon clamp. The Conner port was placed and the abdomen was insufflated to 15 mmHg. A 5 mm 30 degree laparoscopic was inserted. There was no evidence of any injury from the entry. Next, we placed 5 mm ports in the subxiphoid position and right upper quadrant at the midclavicular line and anterior axillary line. Patient was then positioned in reverse Trendelenburg and the table was tilted to the left. The gallbladder was grasped at the dome and retracted cephalad. There were some adhesions of mesenteric tissue to the right liver which were carefully dissected with cautery to allow full retraction of the gallbladder. We then dissected the cystic structures with a combination of hook cautery and blunt dissection. We obtained a critical view. We placed hemoclips on the cystic duct and artery and divided the cystic duct and artery sharply between the clips. The gallbladder was then dissected off the liver and placed in a specimen retrieval bag. We irrigated the right upper quadrant and all the aspirate returned clear. We then removed the 5 mm ports under direct vision we removed the Conner port. We then injected some local into the fascia and closed the fascia with 2 interrupted 0 Vicryl sutures. The skin incisions were closed with 4 Monocryl and Steri-Strips were applied. Band-Aids were applied over the Steri-Strips. EBL: 10 mL Specimen: Gallbladder Post-operative Condition: stable Disposition: PACU
[2021-08-06 16:46] VITALS: BP 178/93; PULSE 75; RESP 15; TEMP 36.3; O2SAT 95
[2021-08-06 17:01] VITALS: BP 164/84; PULSE 71; RESP 15; O2SAT 98
[2021-08-06] MEDS: OXYCODONE/ACETAMINOPHEN 5/325 TABLET 1 TAB PO (17:06)
[2021-08-06 17:16] VITALS: BP 172/77; PULSE 65; RESP 15; O2SAT 99
--- NOTE | 2021-08-06 17:20 | SUR.PHASEI ---
pt tolerating PO water and snack without issue of nausea. Reviewed discharge instructions with pt and he verbalized understanding.
[2021-08-06 17:33] VITALS: BP 168/86; PULSE 63; RESP 14; O2SAT 99
== END 2021-08-06 17:45 | disposition home or self-care (01) ==
PROVIDERS: Family Provider Family Medicine; PCP Family Medicine; Referring Provider Surgery; Visit Provider Surgery
PROC: 0FT44ZZ Resection of Gallbladder, Percutaneous Endoscopic Approach (ICD-10-PCS; CPT 47562; principal; 2021-08-06 14:45)
DX: J45.909 Unspecified asthma, uncomplicated (principal); K80.12 Calculus of gallbladder with acute and chronic cholecystitis without obstruction; E78.5 Hyperlipidemia, unspecified
CPT/HCPCS: 47562; J0690; J1100; J1885; J2250; J2405; J2704; J3010

== ENCOUNTER → 2021-08-28 10:04 | Outpatient (CLI) | payer OTHER, SELFPAY ==
[2021-08-28 10:57] LABS: COVID19 -Nasal RAPID Negative (Negative)
== END ==
PROVIDERS: Family Provider Family Medicine; PCP Family Medicine; Visit Provider Surgery
DX: Z01.812 Encounter for preprocedural laboratory examination (principal)
CPT/HCPCS: 87635; C9803

== ENCOUNTER 2021-08-29 14:49 | Day surgery (SDC) | payer OTHER, SELFPAY ==
--- NOTE | 2021-08-29 | PATH_ITS ---
[facility] Accession Number: [id number] . 01 Material submitted: . colon - CECAL POLYPS . 01 Clinical history: . SCREENING COLONOSCOPY . 02 Diagnosis: Cecum, Polyps, Biopsies: Tubular adenoma. Sessile serrated adenoma. MRV 09/03/2021 1045 Local . 02 Electronically signed: . Sofia Alvarado MD, Pathologist NPI- [id number] . 01 Gross description: . CECAL POLYPS: Received in formalin are multiple fragment(s) of diaz, soft tissue measuring 0.7 x 0.4 x 0.1 cm in aggregate submitted entirely in 1 cassette(s) /CPE 08/31/2021 0306 Local . 02 Pathologist provided ICD-10: D12.0 . 02 CPT . 035003 Specimen Comment: A courtesy copy of this report has been sent to [phone] Performed at: 01 [facility] Cytology [address] [facility], [place], [place] [id number] MD Fletcher King MD Phone: [phone] Performed at: 02 [facility] [address] [place], [place] [id number] MD Sofia Alvarado MD Phone: [phone]
[2021-08-29 15:38] VITALS: BP 159/80; PULSE 68; RESP 16; TEMP 36.2; O2SAT 98; BMI 23.1
[2021-08-29] MEDS: LACTATED RINGERS 1,000 ML 200 ML IV (15:45)
--- NOTE | 2021-08-29 15:46 | PM.PREOP ---
Pre-operative Note COVID-19 COVID-19 status: Negative Result date/Date tested (Pos, Neg/Pending): 08/28/21 Interval Note History & Physical reviewed/Exam performed by Physician: Yes Changes to H&P: No ASA Class (for procedural sedation): II
[2021-08-29] MEDS: fentaNYL 250 MCG/5 ML INJ IV (15:53)
[2021-08-29] MEDS: MIDAZOLAM 5 MG/5 ML VIAL IV (15:53)
--- NOTE | 2021-08-29 16:21 | PM.OP.COLON ---
Operative Date/Time/Diagnoses Date of procedure: 08/29/21 Time of procedure: 16:21 Pre-op diagnosis: Colon cancer screening Post-op diagnosis: same Procedure & Clinicians Study performed: Colonoscopy Same procedure as scheduled: Yes Surgeon: Esau Deleon Procedure Notes Procedure in detail: Procedure: The patient was brought to the endoscopy suite, placed in left lateral decubitus position. The patient was connected to monitoring devices. A time-out was performed. Sedation was administered. Once the patient was adequately sedated, a digital rectal exam was performed and was normal. The scope was then inserted and advanced to the cecum where the appendiceal orifice was identified and photographed. The scope was then slowly withdrawn over greater than 6 minutes. Mucosa was thoroughly inspected. There were 2 polyps in the cecum. The 1st 1 was near the appendiceal orifice since about 6 mm and was removed with cold snare. The other was slightly distal to the ileocecal valve, was about 4 mm and was removed with cold snare. There was significant diverticulosis throughout the sigmoid colon. The scope was retroflexed in the rectum. There were some dilated veins in the rectum but no other abnormalities were noted. The scope was straightened and removed. The patient was awakened and brought to recovery. Versed: 5 mg Fentanyl: 125 mcg EBL: 5 mL Findings: Small cecal polyps and sigmoid diverticulosis Scope withdrawal time: 12 Sedation minutes: 26 Post-procedure Recommendations: Will call with biopsy results Disposition: PACU
[2021-08-29 16:25] VITALS: BP 128/73; PULSE 66; RESP 16; TEMP 36.2; O2SAT 98
[2021-08-29 16:30] VITALS: BP 126/70; PULSE 66; RESP 12; O2SAT 99
[2021-08-29 16:40] VITALS: BP 142/72; PULSE 60; RESP 16; O2SAT 98
[2021-08-29 16:43] VITALS: BP 141/81; PULSE 62; RESP 15; O2SAT 98
== END 2021-08-29 16:45 | disposition home or self-care (01) ==
PROVIDERS: Family Provider Family Medicine; PCP Family Medicine; Referring Provider Surgery; Visit Provider Surgery
PROC: 0DJD8ZZ Inspection of Lower Intestinal Tract, Via Natural or Artificial Opening Endoscopic (ICD-10-PCS; CPT 45378; principal; 2021-08-29 15:00)
DX: Z12.11 Encounter for screening for malignant neoplasm of colon (principal); K57.30 Diverticulosis of large intestine without perforation or abscess without bleeding; D12.0 Benign neoplasm of cecum
CPT/HCPCS: 45385; 99152; J2250; J3010

== ENCOUNTER → 2021-09-05 10:19 | Outpatient (CLI) | payer OTHER, SELFPAY ==
--- NOTE | 2021-09-05 10:20 | DI.US.S_ITS ---
PROCEDURE: US PERIPH VENOUS LOW EXTREM LT INDICATIONS: Acute embolism and thrombosis of unspecified deep TECHNIQUE: Real-time imaging, as well as color and pulse Doppler interrogation, were performed of the lower extremity deep veins from the inguinal ligament to the popliteal fossa. COMPARISON: None. FINDINGS: The common femoral, femoral and popliteal veins are normally compressible, and free of intraluminal thrombus. Color and pulse Doppler demonstrate normal phasic intraluminal flow. There is normal augmentation response to distal compression maneuver. Chronic appearing changes with venous wall thickening can be seen involving the veins within the mid and distal portions of the femoral vein and the popliteal vein. IMPRESSION: Negative for deep venous thrombosis. Dictated by: Aftab Wiggins M.D. on 09/05/2021 at 10:43 Approved by: Aftab Wiggins M.D. on 09/05/2021 at 10:44
== END ==
PROVIDERS: Family Provider Family Medicine; PCP Family Medicine; Referring Provider Family Medicine; Visit Provider Family Medicine
DX: I82.402 Acute embolism and thrombosis of unspecified deep veins of left lower extremity (principal); R06.02 Shortness of breath
CPT/HCPCS: 93971

== ENCOUNTER → 2021-09-18 08:52 | Outpatient (CLI) | payer OTHER, SELFPAY ==
[2021-09-18 11:05] LABS: COVID19 -Nasal RAPID Negative (Negative)
== END ==
PROVIDERS: Family Provider Family Medicine; PCP Family Medicine; Referring Provider Internal Medicine; Visit Provider Internal Medicine
DX: Z20.822 Contact with and (suspected) exposure to COVID-19 (principal)
CPT/HCPCS: 87635; C9803

== ENCOUNTER → 2021-09-19 09:13 | Outpatient (CLI) | payer OTHER, SELFPAY ==
--- NOTE | 2021-09-27 08:23 | PM.PFT.1 ---
Pulmonary Function Test Referral & Results Date Patient Seen: 09/19/21 Requesting provider: Karuna Berg Results: The spirometry demonstrates an FVC of 4.78 L which is 94% of predicted. The FEV1 was measured at 3.54 L which is 95% of predicted. The FEV1/FVC ratio was 74 which is 101% of predicted. Following the administration of bronchodilator there was no change to above normal numbers Lung volumes show an SVC of 4.64 L which is 90% of predicted. The diffusing capacity was measured at 24.21 which is 64% of predicted. No hemoglobin value was provided, so no correction for potential anemia could be made, if appropriate. The maximum voluntary ventilation was normal Interpretation: This study demonstrates normal spirometry but moderately reduced diffusing capacity suggesting disease at the capillary alveolar level Clinical correlation suggested
== END ==
PROVIDERS: Family Provider Family Medicine; PCP Family Medicine; Referring Provider Family Medicine; Visit Provider Family Medicine
DX: J45.909 Unspecified asthma, uncomplicated (principal); R06.09 Other forms of dyspnea
CPT/HCPCS: 94060; 94726; 94729

== ENCOUNTER → 2023-01-05 06:56 | Outpatient (CLI) | payer OTHER, SELFPAY ==
--- NOTE | 2023-01-05 | DI.ECHO.S_ITS ---
[facility] +---------+ : : [address] : : : : [id number] : : : : Phone: [phone]+ Echocardiogram Report + + :Name: RELL GUERRA Study Date: 01/05/2023 Height: 74 in : :[facility] ReadingLocation: Weight: 177 lb : : Gender: Male BSA: 2.1 m2 : :: 1950 Age: 72 yrs BP: 165/83 mmHg: :Reason For Study: Dyspnea : :Ordering Physician: KRYSTAL, : :REYNA Performed By: Genia Skinner : :Referring: REYNA RICE : + + Interpretation Summary Left ventricular ejection fraction is estimated to be 60 +/- 5%. There is mild aortic regurgitation. There is mild aortic valve sclerosis. There is trace tricuspid regurgitation. The right ventricular systolic pressure is estimated to be at least 21 mmHg based on an estimated right atrial pressure of 3 mm Hg. Procedure: A two-dimensional transthoracic echocardiogram with color flow and Doppler was performed. The study quality was technically adequate. There is no prior echocardiogram noted for this patient. The patient was in normal sinus rhythm during the exam. Left Ventricle: The left ventricle is normal in size. Left ventricular ejection fraction is estimated to be 60 +/- 5%. Left ventricular wall motion is normal. Diastolic parameters suggest a relaxation abnormality of the left ventricle, consistent with probable normal filling pressures. Right Ventricle: The right ventricle is normal in size and function. Atria: The left atrial size is normal. Right atrial size is normal. There is no Doppler evidence for an interatrial shunt. Mitral Valve: The mitral valve leaflets appear mildly thickened, but open well. There is prolapse of the posterior mitral valve leaflet(s). There is no mitral valve stenosis. There is trace mitral regurgitation. Aortic Valve: The aortic valve is trileaflet. The aortic valve opens well. There is mild aortic valve sclerosis. There is no aortic valve stenosis. There is mild aortic regurgitation. Tricuspid Valve: The tricuspid valve is normal. There is no tricuspid stenosis. There is trace tricuspid regurgitation. The right ventricular systolic pressure is estimated to be at least 21 mmHg based on an estimated right atrial pressure of 3 mm Hg. Pulmonic Valve: The pulmonic valve is not well visualized. There is no pulmonic valvular stenosis. There is trace pulmonic regurgitation. Great Vessels: The aortic root is normal size. The ascending aorta is at the upper limits of normal in size. The pulmonary artery is normal size. The IVC is of normal diameter and collapses greater than 50% with a sniff. This suggests a low right atrial pressure of 3 mm Hg. Pericardium/ Pleura There is no pericardial effusion. There is no pleural effusion. MMode/2D Measurements & Calculations LVIDd: 4.7 cm LVOT diam: 2.0 cm LVIDs: 3.4 cm Ao root diam: 3.5 cm FS: 27.7 % asc Aorta Diam: 3.7 cm EPSS: 0.80 cm IVSd: 1.2 cm LVPWd: 1.2 cm LV ferrari. diameter/BSA (cm/m^2): 2.3 LV sys. diameter/BSA (cm/m^2): 1.6 LA A2 area: 21.1 cm2 RA long axis: 5.3 cm LA A4 area: 19.4 cm2 RA area: 15.1 cm2 LA length (vol): 6.3 cm RA vol: 36.2 ml LA vol: 55.6 ml RA : 17.6 ml/m2 LA vol index: 26.9 ml/m2 RVD1 (basal): 3.6 cm LVLs ap4: 7.0 cm LVLd ap2: 7.9 cm TAPSE_phl: 2.2 cm LVLs ap2: 6.5 cm Doppler Measurements & Calculations Ao V2 max: 123.5 cm/sec LVOT Max Edwin: 105.3 cm/sec Ao V2 mean: 88.2 cm/sec LV V1 max P.4 mmHg Ao max P.0 mmHg LV V1 VTI: 23.8 cm Ao mean P.5 mmHg YARELI(I,D): 2.4 cm2 Ao V2 VTI: 31.3 cm YARELI(V,D): 2.7 cm2 sev ratio: 0.76 YARELI indexed to BSA (cm^2/m^2): 1.2 AI P1/2t: 708.2 msec AI dec slope: 134.0 cm/sec2 MV E max edwin: 75.1 cm/sec TR max edwin: 208.5 cm/sec MV A max edwin: 83.6 cm/sec TR max P.5 mmHg MV E/A: 0.90 PA V2 max: 83.4 cm/sec Med Peak E' Dewin: 6.6 cm/sec PA V2 mean: 58.2 cm/sec E/E' med: 11.4 PA mean P.0 mmHg Lat Peak E' Edwin: 8.4 cm/sec PA pr(Accel): 37.6 mmHg E/E' lat: 8.9 E/e' average: 10.1 MV dec time: 0.25 sec SV(LVOT): 74.6 ml AV P1/2t-pr_phl: 711.0 msec AV VR_phl: 0.85 YARELI(VTI)/BSA_phl: 1.2 Reading Physician:02:17 PM
== END ==
PROVIDERS: Family Provider Family Medicine; PCP Family Medicine; Referring Provider Family Medicine; Visit Provider Family Medicine
DX: I35.1 Nonrheumatic aortic (valve) insufficiency (principal); I35.8 Other nonrheumatic aortic valve disorders; R06.09 Other forms of dyspnea
CPT/HCPCS: 93306

== ENCOUNTER → 2023-01-20 13:42 | Outpatient (CLI) | payer OTHER, SELFPAY ==
--- NOTE | 2023-01-26 15:33 | DI.NM.S_ITS ---
DATE OF SERVICE: 01/26/2023 PROCEDURE: Exercise perfusion study. DATE OF STUDY: January 20, 2023. INDICATION: Chest pain, presyncope, elevated blood pressure. RADIOPHARMACEUTICAL: 26.5 millicurie technetium-99m Myoview IV was injected at stress and 25.2 millicurie technetium-99m Myoview IV was injected at rest. CARDIAC STRESS: The patient underwent exercise perfusion study under the supervision of an attending staff. The patient walked on Vaibhav protocol for 7 minutes and 23 seconds, achieved 93 percent of target heart rate with maximum heart rate 138 beats per minute. Resting blood pressure 146/88 and peak blood pressure 184/80 mmHg. Achieved 8.1 METS of workload, MIMI -11%. Baseline rhythm was sinus. During stress, no convincing ischemic changes seen. No significant arrhythmias seen. The patient remained hemodynamically stable. No chest pain or anginal symptoms. RAW DATA: There is increased subdiaphragmatic activity. GATED STUDY: Resting LV ejection fraction 68% and stress LV ejection fraction 73%. No obvious wall motion abnormalities. TID ratio within normal limits 0.79. Lung/heart ratio 0.50, which is elevated. MYOCARDIAL PERFUSION SCAN: Stress supine and resting supine images revealed moderate to large size, moderate to severely decreased perfusion of inferior wall extending into the inferoapex, which got completely normalized during stress prone images suggestive of tissue attenuation artifact. No obvious ischemia or infarction during on stress prone images. CONCLUSION: I will call this study a normal myocardial perfusion study with evidence of diaphragmatic tissue attenuation artifact, which got completely resolved during stress prone images. Preserved left ventricular function. Good exercise tolerance. MIMI -11%. No significant arrhythmias. No anginal symptoms. Overall, low-risk myocardial perfusion scan. However, lung-heart ratio is abnormal 0.5. Please get a 2D echo to make sure there is no diastolic dysfunction or valvular pathology. FloydToro kent - MAGALI/juan/ doc#: [id number]/job#: [id number] dd: 01/26/2023 13:07:00 dt: 01/26/2023 15:13:00 DICTATING MD/COPIES TO: Amanda Robbins MD COPIES MNE: ANGELICA;
== END ==
PROVIDERS: Family Provider Family Medicine; PCP Family Medicine; Referring Provider Family Medicine; Visit Provider Family Medicine
DX: R06.09 Other forms of dyspnea (principal)
CPT/HCPCS: 78452; 93017; A9502

== ENCOUNTER → 2024-09-26 12:24 | Outpatient (CLI) | payer MEDICARE, OTHER, SELFPAY ==
--- NOTE | 2024-09-26 12:26 | DI.ECHO.S_ITS ---
[facility] : : [address] : : [place] : : [id number] : : Phone: [phone] Echocardiogram Report + + :Name: RELL GUERRA Study Date: 09/26/2024 Height: 74 in : :[facility] ReadingLocation: Weight: 175 lb : : Gender: Male BSA: 2.1 m2 : :: 1950 Age: 74 yrs BP: 134/74 mmHg: :Reason For Study: AORTIC VALVE INSUFFICIENCY : :Ordering Physician: KRYSTAL, : :REYNA Performed By: Rachna Leiva : :Referring: REYNA RICE : + + Interpretation Summary The patient was in sinus bradycardia with heart rates between 52-58 bpm during the exam. The left ventricle is normal in size. The left ventricular ejection fraction is normal. Left ventricular ejection fraction is estimated to be 60 +/- 5%. There has been no significant change in LVEF since the previous exam. The right ventricle is normal in size and function. There is borderline mitral valve prolapse. There is prolapse of the posterior mitral valve leaflet(s). There has been no significant change since the previous study. There is mild mitral regurgitation. There is mild to moderate aortic regurgitation. Previously mild aortic regurgitation The IVC is of normal diameter and collapses greater than 50% with a sniff. This suggests a low right atrial pressure of 3 mm Hg. Procedure: A two-dimensional transthoracic echocardiogram with color flow and Doppler was performed. The study quality was technically adequate. Comparison is made with the echocardiogram of 01/05/2023. The patient was in sinus bradycardia with heart rates between 52-58 bpm during the exam. Left Ventricle: The left ventricle is normal in size. Proximal septal thickening is noted. There is no echo evidence for significant left ventricular outflow tract obstruction. There is no thrombus. The left ventricular ejection fraction is normal. Left ventricular ejection fraction is estimated to be 60 +/- 5%. There has been no significant change since the previous exam. There are no focal wall motion abnormalities. Diastolic parameters suggest a relaxation abnormality of the left ventricle, consistent with probable normal filling pressures. Right Ventricle: The right ventricle is normal in size and function. Atria: The left atrial size is normal. There has been no significant change since the previous study. Right atrial size is normal. There is no Doppler evidence for an interatrial shunt. Mitral Valve: There is borderline mitral valve prolapse. There is prolapse of the posterior mitral valve leaflet(s). There has been no significant change since the previous study. There is mild mitral regurgitation. Aortic Valve: The aortic valve is trileaflet. The aortic valve opens well. The aortic valve is slightly calcified. There is no aortic valve stenosis. There is mild to moderate aortic regurgitation. Tricuspid Valve: The tricuspid valve leaflets are thin and pliable. Pulmonary artery pressures cannot be estimated because of the lack of a measurable TR jet velocity but the IVC suggests a CVP of around 3 mmHg. There is trace tricuspid regurgitation. Pulmonic Valve: The pulmonic valve leaflets are thin and pliable; valve motion is normal. There is mild pulmonic regurgitation. Great Vessels: The aortic root is normal size. The ascending aorta is at the upper limits of normal in size. The IVC is of normal diameter and collapses greater than 50% with a sniff. This suggests a low right atrial pressure of 3 mm Hg. Pericardium/ Pleura There is no pericardial effusion. There is no pleural effusion. MMode/2D Measurements & Calculations LVIDd: 4.6 cm LVOT diam: 2.2 cm LVIDs: 3.4 cm Ao root diam: 3.9 cm FS: 26.3 % asc Aorta Diam: 3.7 cm IVSd: 1.1 cm Ao Arch Diam (Prox Trans): 2.9 cm LVPWd: 1.0 cm LV ferrari. diameter/BSA (cm/m^2): 2.2 LV sys. diameter/BSA (cm/m^2): 1.6 LA A2 area: 21.3 cm2 RA long axis: 5.4 cm LA A4 area: 19.0 cm2 RA area: 18.7 cm2 LA length (vol): 5.3 cm RA vol: 55.2 ml LA vol: 64.5 ml RA : 26.9 ml/m2 LA vol index: 31.4 ml/m2 IVC diam: 1.8 cm RVD1 (basal): 3.5 cm RVD2 (mid): 3.3 cm TAPSE: 1.8 cm Doppler Measurements & Calculations Ao V2 max: 133.6 cm/sec LVOT Max Edwin: 92.0 cm/sec Ao V2 mean: 95.9 cm/sec LV V1 max P.4 mmHg Ao max P.1 mmHg LV V1 VTI: 21.0 cm Ao mean P.1 mmHg YARELI(I,D): 2.6 cm2 Ao V2 VTI: 31.5 cm YARELI(V,D): 2.7 cm2 sev ratio: 0.67 YARELI indexed to BSA (cm^2/m^2): 1.3 AI P1/2t: 785.0 msec AI dec slope: 120.6 cm/sec2 MV E max edwin: 69.6 cm/sec PA V2 max: 82.5 cm/sec MV A max edwin: 56.3 cm/sec PA V2 mean: 57.5 cm/sec MV E/A: 1.2 PA mean P.5 mmHg Med Peak E' Edwin: 7.6 cm/sec PA pr(Accel): 32.3 mmHg E/E' med: 9.2 Lat Peak E' Edwin: 8.4 cm/sec E/E' lat: 8.3 E/e' average: 8.7 MV dec time: 0.24 sec MVA(VTI): 2.9 cm2 MV V2 mean: 44.9 cm/sec SV(LVOT): 83.2 ml MV mean P.94 mmHg MV V2 VTI: 29.0 cm Reading Physician:02:27 PM
== END ==
PROVIDERS: Family Provider Family Medicine; PCP Family Medicine; Referring Provider Family Medicine; Visit Provider Family Medicine
DX: I08.0 Rheumatic disorders of both mitral and aortic valves (principal); R00.1 Bradycardia, unspecified
CPT/HCPCS: 93306

== ENCOUNTER 2024-10-09 07:56 | Emergency (ER) | payer MEDICARE, OTHER, SELFPAY ==
[2024-10-09] VITALS (7 sets, daily range): BP systolic 122–163; BP diastolic 58–68; PULSE 51–67; RESP 16–24; TEMP 36.7; O2SAT 96–99; BMI 22.4
--- NOTE | 2024-10-09 08:26 | ED_ITS ---
HPI - General Adult General Chief complaint: Extremity Problem,Nontraumatic Stated complaint: both feet turned purple x 2days Time Seen by Provider: 10/09/24 08:26 Source: patient History of Present Illness HPI narrative: Patient is a 74-year-old male with history of prior DVT on anticoagulation, presenting with lower extremity discoloration. Per report, patient has had several months of increasing discoloration over the dorsum of bilateral feet. States that this discoloration seemed to worsen in the last 2 days prompting his presentation for evaluation. He denies any pain, redness, warmth. Patient denies any acute worsening. Patient has otherwise at his baseline state of health, states that his became concerned that this may represent recurrent DVT and so prompted him to seek evaluation. Patient denies any more proximal leg pain or swelling, no decreased range of motion, numbness, no trauma to the area. Similarly patient denies any chest pain, shortness of breath, pleuritic pain. He has been compliant with his medications. Related Data Home Medications Medication Instructions Recorded Confirmed albuterol sulfate 90 mcg/actuation 1 puff INH PRN PRN Cough ##0 11/24/16 05/28/22 aerosol inhaler (Proventil HFA) atorvastatin 20 mg tablet (Lipitor) 20 mg PO HS ##0 11/24/16 05/28/22 beclomethasone dipropionate 80 1 puff INH BID ##0 11/24/16 05/28/22 mcg/actuation aerosol inhaler (Qvar) rivaroxaban 20 mg tablet (Xarelto) 20 mg PO DAILY 08/05/21 05/28/22 tadalafil 5 mg tablet (Cialis) 5 mg PO DAILY PRN Sexual Activity 01/21/22 05/28/22 Allergies Allergy/AdvReac Type Severity Reaction Status Date / Time epinephrine [EPINEPHRINE] AdvReac Unknown shock Verified 08/21/21 11:31 Review of Systems Review of Systems ROS Unobtainable: All systems reviewed & are unremarkable except as noted in HPI and below Constitutional Constitutional: Denies chills and Denies fever(s) Eyes Eyes: Denies change in vision ENT Ears, Nose, Mouth, and Throat: Denies dizziness Cardiovascular Cardiovascular: Denies chest pain and Denies dyspnea Respiratory Respiratory: Denies dyspnea Gastrointestinal Gastrointestinal: Denies nausea and Denies vomiting Genitourinary Genitourinary: Denies oliguria and Denies dysuria Musculoskeletal Musculoskeletal: Denies numbness Neurologic Neurologic: Denies dizziness and Denies numbness Psychiatric Psychiatric: Denies suicidal ideation Hematologic/Lymphatic On Anticoagulants: Yes Patient History Medical History Asthma DVT (deep venous thrombosis) (~06/2020) Easy bruisability GERD (gastroesophageal reflux disease) HLD (hyperlipidemia) Pneumonia Sinus drainage Surgical History Hx of bilateral cataract extraction (2019) Hx of tonsillectomy (1956) Social History household members: spouse alcohol intake: current alcohol intake frequency: a few times a month Exam Initial Vital Signs Initial Vital Signs: Vital Signs Pulse Rate 67 10/09/24 08:21 Blood Pressure 163/68 H 10/09/24 08:21 Pulse Oximetry 97 10/09/24 08:21 Const General: cooperative HENMT Head: normocephalic and atraumatic Nose: external nose normal Face and sinus: face symmetric Eyes Conjunctivae: conjunctivae normal Neck Neck: normal visual inspection Resp Effort & Inspection: normal respiratory effort and able to speak in complete sentences Auscultation: clear to auscultation bilaterally Cardio Rate: regular rate Rhythm: regular rhythm Pulses: normal peripheral pulses GI Inspection: non-distended Palpation: No tender Skin Other: Diffuse small varicose veins over the dorsum of bilateral lower extremities without surrounding erythema, tenderness, warmth Neuro General: patient alert and patient oriented x3 Extrem General: no calf tenderness Right lower extremity: full ROM and normal capillary refill Left lower extremity: full ROM and normal capillary refill Psych Mental Status: mental status grossly normal Course Orders Ordered: Discontinued Medications Sodium Chloride (Normal Saline 0.9%) 1,000 mls @ 150 mls/hr IV CONT JOSHUA Last Infusion: 10/09/24 10:07 Dose: 0 mls/hr Documented By: Admin: 10/09/24 09:48 Dose: 150 mls/hr Documented By: GUSTAVO Vital Signs Vital signs: Vital Signs - 8 hr 10/09/24 08:26 Temperature 98.0 F Pulse Rate 64 Respiratory Rate 16 Blood Pressure 163/68 H Pulse Oximetry 97 Oxygen Delivery Method Room Air Medical Decision Making Medical Records Medical records reviewed: Yes I reviewed the patient's medical records. Lab Data Lab results reviewed: Yes I reviewed the patient's lab results. Lab results narrative: CBC without evidence of acute abnormality on independent review, similarly CMP without evidence of kidney injury 10/09/24 08:55 10/09/24 08:55 Labs: Lab Results 10/09/24 Range/Units 08:55 WBC 6.1 (4.5-11.0) X10^3/uL RBC 5.04 (4.5-5.9) X10^6/uL Hgb 15.7 (13.5-17.5) g/dL Hct 46.2 (41-53) % MCV 91.8 (80-100) fL MCH 31.1 (26-34) PG MCHC 33.9 (30-36) % RDW 13.4 (11.6-14.8) % Plt Count 208 (150-400) X10^3/uL Neut % (Auto) 57.0 (50-75) % Lymph % (Auto) 22.4 L (25-40) % Collier % (Auto) 11.2 (3-14) % Eos % (Auto) 8.6 H (2-4) % Baso % (Auto) 0.8 (0-2) % Neut # (Auto) 3500 (9771-9956) /uL Lymph # (Auto) 1400 (9232-5336) /uL Collier # (Auto) 700 (0-900) /uL Eos # (Auto) 500 H (0-450) /uL Baso # (Auto) 0 (0-100) /uL Sodium 140 (137-145) mmol/L Potassium 4.4 (3.4-5.1) mmol/L Chloride 107 (98-107) mmol/L Carbon Dioxide 25 (22-32) mmol/L BUN 21 H (9-20) mg/dL Creatinine 1.08 (0.66-1.25) mg/dL Estimated GFR > 60 (>60) mL/min BUN/Creatinine Ratio 19.4 (6-22) Glucose 101 H (70-99) mg/dL Calcium 9.4 (8.4-10.2) mg/dL Imaging Data US - DVT: Attestation: I personally reviewed and interpreted this imaging study as follows: My Impression: Ultrasound imaging without evidence of DVT in the bilateral lower extremities ECG Data Attestation: I personally reviewed and interpreted this ECG as follows: Prior ECG tracings: not available for review Interpretation: EKG demonstrating sinus bradycardia at a rate of 56, MD interval 176, without evidence of acute ischemic changes without prior for comparison [facility] Narrative Medical decision making narrative: After history and exam, [facility] Medical records reviewed: Oncology progress note from 05/28/2022, Dr. Elam confirming need for lifelong/indefinite anticoagulation due to positive lupus anticoagulant Differential considered: Includes but not limited to varicose veins, thrombophlebitis, unlikely to represent arterial thrombus given warmth and evidence of perfusion, may represent DVT in the history of prior DVT. Unlikely to represent acute renal pathology or ACS without chest pain, shortness of breath. Lab Test results independently reviewed as above. Pertinent findings: CBC and CMP without evidence of acute abnormality. Imaging studies independently reviewed: Ultrasound of his bilateral lower extremities without evidence of DVT Upon re-evaluation, patient remains in no acute distress, reassured regarding negative ultrasound findings. Discussed appropriate follow-up and red flag/strict return precautions, discharged in stable condition. Discharge Plan Departure Patient Disposition: Home Clinical Impression: Varicose veins of both lower extremities, Lower extremity edema Activity Restrictions/Additional Instructions: You were seen in the emergency department for your lower extremity discoloration and swelling. Evaluation here including lab work, EKG, and ultrasound imaging was overall reassuring. There is no evidence of a blood clot or underlying abnormality. We recommend using compression stockings in order to minimize further discoloration or swelling of the lower extremities. It is also important that you follow up closely with your primary care provider for re-evaluation and further management. If you develop increasing swelling, discoloration or numbness, pain, redness or warmth, or other symptoms that are concerning to you, please return to the emergency department for further evaluation. Prescriptions: No Action atorvastatin [Lipitor] 20 MG tablet 20 mg PO HS Qty: 0 Qvar 80 MCG/PUFF aerosol 1 puff INH BID Qty: 0 albuterol sulfate [Proventil HFA] 90 MCG/PUFF HFA aerosol inhaler 1 puff INH PRN PRN (Reason: Cough) Qty: 0 Xarelto 20 mg Tablet 20 mg PO DAILY Rx Instructions: must administer with evening meal tadalafil [Cialis] 5 mg Tablet 5 mg PO DAILY PRN (Reason: Sexual Activity) Rx Instructions: administer approximately 30min before sexual activity; do not use more than 1 dose per 24hrs Referrals: Karuna Berg MD [Primary Care Provider] - Stand Alone Forms: Patient Portal/API/Survey
--- NOTE | 2024-10-09 08:40 | EKG_ITS ---
[facility] [address] [place] [address] Test Date: 2024-10-09 Pat Name: Toro Floyd Department: [facility] Room: Gender: Male [employer] Operator: JIM : 1950 Requested By: Order Number: [id number] Reading MD: Shreyas Macdonald Measurements Intervals Etta Rate: 56 P: 48 MN: 176 QRS: -26 QRSD: 102 T: -4 QT: 430 QTc: 414 Interpretive Statements Sinus bradycardia Incomplete right bundle branch block Minimal voltage criteria for LVH, may be normal variant ( R in aVL ) Electronically Signed On 10-09-2024 18:36:50 PDT by Shreyas Macdonald
--- NOTE | 2024-10-09 08:40 | DI.US.S_ITS ---
PROCEDURE: US PERIP VENOUS LOW EXTREM BI INDICATIONS: Lower extremity edema, please evaluate for deep venous thrombosis TECHNIQUE: Real-time imaging, as well as color and pulse Doppler interrogation, were performed of the deep veins of both legs from the inguinal ligament to the popliteal fossa, with documentation of the visualized calf veins. COMPARISON: [facility], , [facility] VENOUS LOW EXTREM LT, 09/05/2021, 11:02. FINDINGS: Right: The common femoral, femoral, popliteal, and the visualized calf veins are normally compressible, and free of intraluminal thrombus. Color and pulse Doppler demonstrate normal phasic intravascular flow. There is normal augmentation response to distal compression maneuver. Left: The common femoral, femoral, popliteal, and the visualized calf veins are normally compressible, and free of intraluminal thrombus. Color and pulse Doppler demonstrate normal phasic intravascular flow. There is normal augmentation response to distal compression maneuver. IMPRESSION: No findings of deep venous thrombosis in either lower extremity. Dictated by: Aftab Wiggins M.D. on 10/09/2024 at 8:31 Approved by: Aftab Wiggins M.D. on 10/09/2024 at 8:32
[2024-10-09 09:05] LABS: Add Manual Diff / Slide Review NO; Basophils Absolute Auto 0 /uL (0-100); Basophils Percent Auto 0.8 % (0-2); Eosinophils Absolute Auto 500 /uL (0-450); Eosinophils Percent Auto 8.6 % (2-4); Hematocrit 46.2 % (41-53); Hemoglobin 15.7 g/dL (13.5-17.5); Lymphocytes Absolute Auto 1400 /uL (1100-4500); Lymphocytes Percent Auto 22.4 % (25-40); Mean Corpuscular HGB Conc 33.9 % (30-36); Mean Corpuscular Hemoglobin 31.1 PG (26-34); Mean Corpuscular Volume 91.8 fL (80-100); Monocytes Absolute Auto 700 /uL (0-900); Monocytes Percent Auto 11.2 % (3-14); Neutrophils Absolute Auto 3500 /uL (1500-7000); Platelet Count 208 X10^3/uL (150-400); Red Blood Cell Count 5.04 X10^6/uL (4.5-5.9); Red Cell Distribution Width 13.4 % (11.6-14.8); White Blood Cell Count 6.1 X10^3/uL (4.5-11.0)
[2024-10-09 09:18] LABS: BUN Creatinine Ratio 19.4 (6-22); Blood Urea Nitrogen 21 mg/dL (9-20); Calcium 9.4 mg/dL (8.4-10.2); Carbon Dioxide 25 mmol/L (22-32); Chloride 107 mmol/L (98-107); Estimated Glomerular Filt Rate > 60 mL/min (>60); Glucose 101 mg/dL (70-99); HEMOLYSIS 17 (0-50); Potassium 4.4 mmol/L (3.4-5.1); Sodium 140 mmol/L (137-145)
[2024-10-09] MEDS: SODIUM CHLORIDE 0.9% 1,000 ML 150 ML IV (09:48)
== END 2024-10-09 10:09 | disposition home or self-care (01) ==
PROVIDERS: Emergency Provider Student in an Organized Health Care Education/Training Program; Family Provider Family Medicine; PCP Family Medicine
DX: I83.93 Asymptomatic varicose veins of bilateral lower extremities (principal); R60.0 Localized edema
CPT/HCPCS: 80048; 85025; 93005; 93041; 93970; 99284

== ENCOUNTER → 2024-12-01 14:08 | Outpatient (CLI) | payer MEDICARE, OTHER, SELFPAY ==
--- NOTE | 2024-12-01 14:10 | DI.RAD.S_ITS ---
PROCEDURE: XR CHEST 2V INDICATIONS: ASTHMA TECHNIQUE: 2 views of the chest were acquired. COMPARISON: [facility], CR, XR CHEST 1V, 07/30/2021, 3:55. FINDINGS: Surgical changes and devices: None. Lungs and pleura: Slight increased interstitial prominence. Mediastinum: Mediastinal contours are normal. Heart size is enlarged. Bones and chest wall: No suspicious bony abnormalities. Soft tissues appear unremarkable. IMPRESSION: Slight increased interstitial prominence. This could be related to edema versus airspace disease. Dictated by: Ngozi Corbin M.D. on 12/01/2024 at 19:57 Approved by: Ngozi Corbin M.D. on 12/01/2024 at 19:57
== END ==
PROVIDERS: Family Provider Family Medicine; PCP Family Medicine; Referring Provider Family Medicine; Visit Provider Family Medicine
DX: J45.20 Mild intermittent asthma, uncomplicated (principal); I51.7 Cardiomegaly
CPT/HCPCS: 71046

== ENCOUNTER → 2024-12-08 12:23 | Outpatient (CLI) | payer MEDICARE, OTHER, SELFPAY ==
--- NOTE | 2024-12-08 12:25 | DI.CT.S_ITS ---
PROCEDURE: CT CHEST W CON INDICATIONS: shortness of breath TECHNIQUE: After the administration of intravenous contrast, 5 mm thick sections acquired from the pulmonary apices to the posterior costophrenic angles. 1 mm axial lung, 5 mm thick coronal and sagittal reformats and 7 mm axial MIP were acquired. For radiation dose reduction, the following was used: automated exposure control, adjustment of mA and/or kV according to patient size. COMPARISON: [facility], CT, CT ANGIO CHEST ABDOMEN PELVIS, 07/30/2021, 4:50. FINDINGS: Image quality: Diagnostic Lungs and pleura: [id number] peripheral reticulation. Traction bronchiectasis is present. There is peripheral basal predominance. Findings are minimally progressed compared to 2022 imaging. No pleural effusions. No airspace disease. Mediastinum, heart, and esophagus: Moderate hiatal hernia. Coronary calcifications. Heart size is at the upper limit of normal. Prominent mediastinal lymph nodes may be reactive, similar to prior. None are enlarged by CT size criteria. Chest wall and thyroid: Unremarkable Upper abdomen: No gross abnormality on these images of the partially visualized upper abdomen. Suspect nonobstructing renal calculi are partially seen. Cholecystectomy clips. Bones: There are degenerative changes. No aggressive appearing osseous abnormality. IMPRESSION: [id number] pulmonary fibrosis with a peripheral, basal predominance. Traction bronchiectasis is seen. No overt honeycombing. Findings are mildly progressed from 2022 imaging. 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 No dense airspace disease or pleural effusions. Moderate hiatal hernia. Coronary calcifications. Prominent mediastinal lymph nodes are seen, possibly reactive, similar to prior. Consider future high-resolution chest CT surveillance. Dictated by: Shamar Forte M.D. on 12/09/2024 at 10:27 Approved by: Shamar Forte M.D. on 12/09/2024 at 10:31
[2024-12-08 12:52] LABS: Estimated Glomerular Filt Rate > 60 mL/min (>60)
== END ==
LOC: CT 12:24
PROVIDERS: Family Provider Family Medicine; PCP Family Medicine; Referring Provider Family Medicine; Visit Provider Family Medicine
DX: J84.10 Pulmonary fibrosis, unspecified (principal); J47.9 Bronchiectasis, uncomplicated; R06.02 Shortness of breath; J45.20 Mild intermittent asthma, uncomplicated; K44.9 Diaphragmatic hernia without obstruction or gangrene; I25.10 Atherosclerotic heart disease of native coronary artery without angina pectoris; Z90.49 Acquired absence of other specified parts of digestive tract
CPT/HCPCS: 36415; 71260; 82565; Q9967